=== PATIENT | female | born 1965 | race Hispanic/Latino ===

== ENCOUNTER 2017-04-06 17:26 | Emergency (ER) | payer SELFPAY ==
[2017-04-06] MEDS ORDERED: Ketorolac Tromethamine 60 MG/2 ML VIAL ONE (18:47)
[2017-04-06] MEDS ORDERED: Dexamethasone 10 MG/ML VIAL ONE (18:47)
[2017-04-06] MEDS ORDERED: Acetaminophen 500 MG TAB ONE (18:47)
[2017-04-06 19:09] LABS: Bilirubin Negative (Negative); Blood, Urine Negative (Negative); Glucose, Urine (Dipstick) Negative (Negative); Ketone, Urine Negative (Negative); Nitrite Negative (Negative); Protein, Urine (Dipstick) Negative (Neg-Trace)
== END 2017-04-06 19:48 | disposition home or self-care (01) ==
LOC: ERS 17:26
DX: J02.0 Streptococcal pharyngitis (principal); E11.9 Type 2 diabetes mellitus without complications; E78.5 Hyperlipidemia, unspecified; I10 Essential (primary) hypertension; F32.9 Major depressive disorder, single episode, unspecified; F41.9 Anxiety disorder, unspecified; Z79.84 Long term (current) use of oral hypoglycemic drugs; Z79.82 Long term (current) use of aspirin; Z79.899 Other long term (current) drug therapy
CPT/HCPCS: 81003; 96372; J1100; J1885

== ENCOUNTER 2017-05-19 07:55 | Emergency (ER) | payer OTHER, SELFPAY ==
[2017-05-19] MEDS ORDERED: Ketorolac Tromethamine 30 MG/ML VIAL ONE (11:32)
--- NOTE | 2017-05-19 14:47 | RAD ---
THORACIC SPINE THREE VIEWS: History: Back injury. FINDINGS: Vertebral bodies are normal in height. Degenerative osteophytes are seen. No compression fractures. P edicles appear intact. IMPRESSION: No acute injury. POS: [facility]
--- NOTE | 2017-05-19 15:26 | RAD ---
CERVICAL SPINE SERIES THREE VIEWS: History: Neck injury. FINDINGS: Vertebral bodies are normal in height. There are small osteophytes present, lower cervical spine shanel on. Very minimal retrolisthesis of C5 on C6. There are no signs of fracture or dislocation or soft ti ssue swelling. IMPRESSION: Mild arthritic changes of the spine. POS: [facility]
== END 2017-05-19 13:18 | disposition home or self-care (01) ==
LOC: ERS 07:55
DX: M79.1 Myalgia (principal); M54.6 Pain in thoracic spine; M54.2 Cervicalgia; E11.9 Type 2 diabetes mellitus without complications; E78.5 Hyperlipidemia, unspecified; I10 Essential (primary) hypertension; F32.9 Major depressive disorder, single episode, unspecified; F41.9 Anxiety disorder, unspecified; V43.92XA Unspecified car occupant injured in collision with other type car in traffic accident, initial encounter
CPT/HCPCS: 72040; 72072; 96372; J1885

== ENCOUNTER 2017-06-07 07:03 | Emergency (ER) | payer OTHER, SELFPAY ==
--- NOTE | 2017-06-07 08:39 | RAD ---
PA AND LATERAL VIEWS OF CHEST: Date: 06/07/17 HISTORY: Cough. FINDINGS: The heart size is normal. The lungs are well expanded without focal areas of consolidation, pneumotho rax, or pleural effusions. There are mild degenerative changes in the spine. Comparison is made with the exam of 09/12/15. IMPRESSION: No radiographic evidence of acute cardiopulmonary process. POS: [facility]
== END 2017-06-07 08:58 | disposition home or self-care (01) ==
LOC: ERS 07:03
DX: J06.9 Acute upper respiratory infection, unspecified (principal); E11.9 Type 2 diabetes mellitus without complications; E78.5 Hyperlipidemia, unspecified; I10 Essential (primary) hypertension; F32.9 Major depressive disorder, single episode, unspecified; F41.9 Anxiety disorder, unspecified; Z79.84 Long term (current) use of oral hypoglycemic drugs; Z79.899 Other long term (current) drug therapy
CPT/HCPCS: 71020; 94640; J7620

== ENCOUNTER 2017-09-09 21:34 | Emergency (ER) | payer SELFPAY ==
[2017-09-09] MEDS ORDERED: Nitroglycerin 0.4 MG TAB (25 Tab Bottle) ONE (21:55)
[2017-09-09] MEDS ORDERED: Aspirin 325 MG TAB ONE (21:55)
[2017-09-09 22:05] LABS: #Basophils 0.1 thou/uL (0.0-0.2); #Eosinphils 0.3 thou/uL (0.0-0.7); #Lymphocytes 4.4 thou/uL (1.20-3.40); #Monocytes 0.8 thou/uL (0.11-0.59); #Neutrophils 7.7 thou/uL (1.40-6.50); %Basophils 0.6 % (0.0-1.0); %Eosinophils 2.6 % (0.0-10.0); %Lymphocytes 32.8 % (21.0-51.0); %Monocytes 6.3 % (0.0-10.0); %Neutrophils 57.7 % (42.0-75.0); Hemoglobin 13.5 g/dL (12.0-16.0); Mean Corpuscular HGB CONC 33.9 g/dL (32.0-36.0); Mean Corpuscular Hemoglobin 29.1 pg (27.0-31.0); Mean Platelet Volume 6.9 fL (7.4-10.4); Platelet Count 343 thou/uL (130-400); RBC Distribution Width 11.9 % (11.5-14.5); Red Blood Cell (RBC) Count 4.64 mill/uL (4.20-5.40); White Blood Cell (WBC) Count 13.4 thou/uL (4.8-10.8)
[2017-09-09 22:34] LABS: ALT (SGPT) 23 U/L (8-55); AST (SGOT) 33 U/L (5-34); Albumin 3.7 g/dL (3.5-5.0); Alkaline Phosphatase 114 U/L (40-150); Anion Gap 14 mmol/L (10-20); BUN (Urea Nitrogen) 11 mg/dL (9.8-20.1); Bilirubin, Total 0.4 mg/dL (0.2-1.2); Calc. Creatinine Clearance 0 mL/min (70-130); Calcium 8.6 mg/dL (7.8-10.44); Carbon Dioxide 22 mmol/L (22-29); Chloride 104 mmol/L (98-107); Estimated GFR-MDRD 52; Globulin 4.3 g/dL (2.4-3.5); Glucose 213 mg/dL (70-105); Potassium 4.7 mmol/L (3.5-5.1); Sodium 135 mmol/L (136-145)
[2017-09-09 22:35] LABS: CKMB 1.6 ng/mL (0-6.6); Troponin I Less than 0.010 ng/mL (< 0.028)
--- NOTE | 2017-09-09 22:48 | RAD ---
SINGLE VIEW OF THE CHEST: Comparison: None. History: Chest pain, dizziness. FINDINGS: Single view of the chest shows a normal sized cardiomediastinal silhouette. There is no evidence of c onsolidation, mass, or pleural effusion. The bones are unremarkable. IMPRESSION: No evidence of acute cardiopulmonary disease. POS: [facility]
== END 2017-09-09 23:25 | disposition home or self-care (01) ==
LOC: ERS 21:34
DX: R07.89 Other chest pain (principal); I10 Essential (primary) hypertension; E11.9 Type 2 diabetes mellitus without complications; K21.9 Gastro-esophageal reflux disease without esophagitis; E78.5 Hyperlipidemia, unspecified; E66.9 Obesity, unspecified; Z79.84 Long term (current) use of oral hypoglycemic drugs; Z79.899 Other long term (current) drug therapy
CPT/HCPCS: 71045; 80053; 82553; 84484; 85025; 85379; 93005; 94760

== ENCOUNTER 2018-05-29 06:57 | Day surgery (SDC) | payer OTHER ==
[2018-05-28 14:45] VITALS: BMI 52.9
[2018-05-29] MEDS ORDERED: PROPOFOL 200 MG/20 ML VIAL ONE (10:07)
--- NOTE | 2018-05-29 15:20 | OP ---
DATE OF PROCEDURE: 05/29/2018 PROCEDURE PERFORMED: Colonoscopy (diagnostic). INDICATION FOR PROCEDURE: Recurrent diverticulitis, screening for malignant neoplasm of the colon. DESCRIPTION OF PROCEDURE: After the risks and benefits of the procedure were explained to the patient including risks of bleeding, infection, perforation, reactions to anesthesia, aspiration, and/or pain, informed consent was obtained. The patient was then taken to the endoscopy suite, where deep sedation was administered via propofol and anesthesia support. Once adequate sedation was achieved, the patient was placed in the left lateral decubitus position with a digital rectal examination performed. Once that was completed, the standard colonoscope was introduced into the rectum and advanced to the terminal ileum without difficulty and with careful visualization of the mucosa on withdrawal. The quality of the prep was excellent. The patient tolerated the procedure well with no immediate perioperative complications. At the completion of the procedure, all equipment was removed from the patient and she was taken to Day Stay in satisfactory condition. COLONOSCOPY FINDINGS: Digital rectal exam normal. COLON FINDINGS: Normal-appearing mucosa was seen in the terminal ileum as well as in the ileocecal valve and appendiceal orifice. Normal-appearing mucosa was then seen in the cecum, ascending, and transverse and proximal descending colon. Numerous small and large mouth diverticula were seen in the distal descending colon as well as within the sigmoid colon without any evidence of colonic narrowing, increased erythema, bleeding, or purulence. Normal-appearing mucosa was then seen in the rectum. Normal-appearing mucosa was also seen on rectal retroflexion. IMPRESSION: 1. Severe left-sided diverticulosis without any evidence of diverticulitis. 2. Otherwise, normal colonoscopy. RECOMMENDATIONS: 1. Would follow up in the GI clinic in 3 weeks for further evaluation/management of chronic constipation and diverticulitis. 2. Would place consult for evaluation by the colorectal surgeon at that time for possible sigmoid resection due to recurrent diverticulitis. 3. Would repeat the colonoscopy in 10 years as part of screening for colonic neoplasm. Job ID: [id number]
== END 2018-05-29 10:28 | disposition home or self-care (01) ==
LOC: SDC 06:57
PROVIDERS: ATTEND Internal Medicine
PROC: 0DJD8ZZ Inspection of Lower Intestinal Tract, Via Natural or Artificial Opening Endoscopic (ICD-10-PCS; principal; 2018-05-29)
DX: Z12.11 Encounter for screening for malignant neoplasm of colon (principal); K57.30 Diverticulosis of large intestine without perforation or abscess without bleeding; K59.09 Other constipation; K21.9 Gastro-esophageal reflux disease without esophagitis; Z79.82 Long term (current) use of aspirin; Z79.84 Long term (current) use of oral hypoglycemic drugs; Z79.899 Other long term (current) drug therapy
CPT/HCPCS: J2704

== ENCOUNTER 2018-06-07 19:42 | Observation (INO) | payer SELFPAY ==
[2018-06-07] MEDS ORDERED: Nitroglycerin 2% Ointment 1 INCH/1 GM Packet ONE (20:07)
[2018-06-07 20:12] LABS: #Basophils 0.1 thou/uL (0.0-0.2); #Eosinphils 0.6 thou/uL (0.0-0.7); #Monocytes 1.1 thou/uL (0.11-0.59); %Basophils 0.7 % (0.0-1.0); %Eosinophils 3.6 % (0.0-10.0); %Lymphocytes 31.5 % (21.0-51.0); %Monocytes 6.8 % (0.0-10.0); %Neutrophils 57.3 % (42.0-75.0); Hemoglobin 13.1 g/dL (12.0-16.0); Mean Corpuscular HGB CONC 34.2 g/dL (32.0-36.0); Mean Corpuscular Hemoglobin 29.3 pg (27.0-31.0); Mean Corpuscular Volume 85.6 fL (78.0-98.0); Mean Platelet Volume 7.2 fL (7.4-10.4); Platelet Count 209 thou/uL (130-400); RBC Distribution Width 12.4 % (11.5-14.5); Red Blood Cell (RBC) Count 4.48 mill/uL (4.20-5.40); White Blood Cell (WBC) Count 15.8 thou/uL (4.8-10.8)
[2018-06-07 20:31] LABS: ALT (SGPT) 18 U/L (8-55); AST (SGOT) 23 U/L (5-34); Albumin 3.9 g/dL (3.5-5.0); Alkaline Phosphatase 118 U/L (40-150); Anion Gap 13 mmol/L (10-20); BUN (Urea Nitrogen) 8 mg/dL (9.8-20.1); Bilirubin, Total 0.4 mg/dL (0.2-1.2); CK (CPK) 115 U/L (29-168); Calc. Creatinine Clearance 0 mL/min (70-130); Calcium 9.1 mg/dL (7.8-10.44); Carbon Dioxide 24 mmol/L (22-29); Chloride 105 mmol/L (98-107); Estimated GFR-MDRD 63; Globulin 3.9 g/dL (2.4-3.5); Glucose 181 mg/dL (70-105); Potassium 3.6 mmol/L (3.5-5.1); Protein, Total 7.8 g/dL (6.0-8.3); Sodium 138 mmol/L (136-145)
--- NOTE | 2018-06-07 20:51 | RAD ---
PORTABLE CHEST: 06/07/18 HISTORY: Chest pain . COMPARISON: 09/09/17 study. Heart size and mediastinum are within normal limits. The lungs are clear of any infiltrative process. No signs of failure. IMPRESSION: No active intrathoracic disease. POS: [facility]
[2018-06-07] MEDS ORDERED: Acetaminophen 500 MG TAB ONE (21:08)
[2018-06-07] MEDS ORDERED: Dextrose 5% in Water 1,000 ML IV PRN (23:28)
[2018-06-07] MEDS ORDERED: HumaLOG 300 UNITS/3 ML VIAL SC PRN (23:28)
[2018-06-07] MEDS ORDERED: Dextrose 50% Abboject 50 ML SYRINGE SLOW IVP PRN (23:28)
[2018-06-07] MEDS ORDERED: Sodium Chloride 0.9% 1,000 ML IV SCH (23:30)
[2018-06-08 00:05] VITALS: BMI 52.4
[2018-06-08 00:47] LABS: Troponin I Less than 0.010 ng/mL (< 0.028)
[2018-06-08] MEDS ORDERED: traMADol HCl 50 MG TAB PO PRN (01:25)
[2018-06-08] MEDS ORDERED: Acetaminophen 325 MG TAB PO PRN (01:25)
--- NOTE | 2018-06-08 04:51 | HP ---
CHIEF COMPLAINT: Chest pain. HISTORY OF PRESENT ILLNESS: The patient is a very pleasant 53-year-old female with a history of hypertension and diabetes, who presented to the hospital for chest pain. The patient stated that she has been having on and off chest tightness going on for few months. However, today when she was at [employer] walking with her family, she started having some chest tightness, felt very diaphoretic, and also felt a little dizzy, so she checked her blood pressure and blood pressure is very high, so she came in to the hospital for further evaluation. The patient denies any fevers or chills recently. Denies any sick contacts. Denies any nausea, vomiting, or diarrhea. The patient does state that she does get a little short of breath that she has noticed on some minimal exertion. PAST MEDICAL HISTORY: The patient has a past medical history of; 1. Hypertension. 2. Diabetes. 3. Obesity. 4. Diverticulosis. 5. Anxiety and depression. PAST SURGICAL HISTORY: She has had bilateral elbow surgery, hysterectomy, bilateral tubal ligation. ALLERGIES: SHE HAS NO KNOWN DRUG ALLERGIES. SOCIAL HISTORY: She denies any history of any alcohol use, drug use, or smoking history. She lives with her . She is a full code. FAMILY HISTORY: Significant for multiple family members with heart problems, diabetes, and hypertension. Her mother of complications of open heart surgery at the age of 73 and father had heart attack at the age of 75. CURRENT MEDICATIONS: This is through the chart. The patient is on the following; 1. Hydrochlorothiazide 25 mg b.i.d. 2. Nexium 20 mg b.i.d. 3. Metoprolol 50 mg b.i.d. 4. Aspirin 81 mg daily. 5. Citalopram 40 mg b.i.d. 6. Lovastatin 10 mg q.p.m. REVIEW OF SYSTEMS: All negative except for the ones mentioned above in the HPI. PHYSICAL EXAMINATION: VITAL SIGNS: As of the following; temperature of 97.7, heart rate 81, respirations 16, oxygen saturation 97% on room air, blood pressure 163/85. GENERAL: She is awake, alert, and oriented x3. Does not appear in distress. CV: S1 and S2 present. No murmurs, rubs, or gallops. HEENT: Normocephalic, atraumatic. No lymphadenopathy noted. RESPIRATORY: Lungs are clear to auscultation. No rhonchi or wheezes noted. ABDOMEN: Soft and nontender. Bowel sounds are present x2. No hepatomegaly or splenomegaly noted. NEUROLOGIC: No pedal edema or calf tenderness. NEUROLOGIC: The patient is able to move all 4 extremities. Sensation is intact in bilateral upper extremities and bilateral lower extremities. SKIN: No cuts, bruises, or lesions noted. PSYCHIATRIC: Alert and oriented x3. LABORATORY RESULTS: Are as of the following; WBCs of 15.8, hemoglobin of 13.1, hematocrit of 38.4, platelets of 209. Chemistry; sodium of 138, potassium 3.6, BUN of 8, creatinine of 0.93. Troponin x2 were negative. EKG was normal. Urine has not been ordered. Her urine is still pending. The patient did have a chest x-ray done, which indicated no active intrathoracic disease. ASSESSMENT AND PLAN: The patient is a very pleasant 53-year-old female who presents to the hospital with complaints of chest pain. 1. Chest pain. The patient has had a stress test, I believe, in 2016, which was negative. We will order stress test given the fact that she has hypertension and diabetes. Her troponin x3 are negative. Also, her EKG did not show any acute symptoms. Given her risk factors, we will get a stress test in the morning. We will also continue to trend her troponins. 2. Diabetes. We will continue her home medications. 3. Hypertension. We will continue her home medications. 4. Deep vein thrombosis prophylaxis. We will put the patient on some sequential compression devices. 5. Elevated leukocytosis, I have noticed a pattern. She has been having elevated leukocytosis since 2016. Her differential in that indicates that she has some monocytes and some lymphocytes. We will check a urine just to make sure that she does not have a urinary tract infection. However, chest x-ray appears to be normal. Job ID: [id number]
[2018-06-08 05:35] LABS: Bilirubin Negative (Negative); Blood, Urine Negative (Negative); Clarity CLEAR (Clear); Glucose, Urine (Dipstick) Negative (Negative); Leukocyte Negative (Negative); Nitrite Negative (Negative); Protein, Urine (Dipstick) Negative (Neg-Trace); Specific Gravity, Urine 1.017 (1.002-1.036); Urobilinogen 0.2 mg/dL (0.2-1.0); pH, Urine 5.5 (5.0-9.0)
[2018-06-08 05:37] LABS: Bacteria/HPF None Seen HPF (None Seen); Hyaline Casts/LPF 0-3 HYALINE CAST LPF (0-3 Hyaline); Pathc Cast-AUWi Flag 0.14 (0-2.49); Squamous Epithelial 0-3 HPF (0-3); WBC/HPF 0-3 HPF (0-3)
[2018-06-08 06:12] LABS: Hemoglobin A1c 6.8 % (4.0-6.0)
[2018-06-08 06:27] LABS: Cardiac Risk 4.7 (Less than 4.5)
[2018-06-08 06:29] LABS: Troponin I Less than 0.010 ng/mL (< 0.028)
[2018-06-08] MEDS ORDERED: Lovastatin 20 MG TAB PO SCH (08:00)
[2018-06-08] MEDS ORDERED: Pantoprazole 40 MG GRANULES PACKET PO SCH (09:00)
[2018-06-08] MEDS ORDERED: Citalopram 20 MG TAB PO SCH (09:00)
[2018-06-08 12:11] VITALS: TEMP 98
[2018-06-08] MEDS ORDERED: Lisinopril 10 MG TAB PO SCH ×2 (13:45→21:00)
--- NOTE | 2018-06-08 14:32 | NM ---
CARDIAC SPECT: CLINICAL HISTORY: 53-year-old female with chest pain, hypertension, and diabetes. TECHNIQUE: A stress-only myocardial perfusion scan was performed following the intravenous administration of 33 mCi technetium-99m sestamibi. Pharmacologic stress with Adenosine was monitored and interpreted by Dr Nichole Kulkarni. FINDINGS: Homogeneous tracer distribution is seen in the myocardial segments on the post stress images. GATED SPECT LVEF: 68%. WALL MOTION EXAM: Normal. IMPRESSION: Normal post stress myocardial perfusion scan. POS: [facility]
[2018-06-08 14:53] VITALS: BP 143/67
[2018-06-08] MEDS ORDERED: Aspirin 81 mg Enteric Coated Tablet PO SCH (21:00)
--- NOTE | 2018-06-08 21:50 | DIS ---
DATE OF ADMISSION: 06/07/2018 DATE OF DISCHARGE: 06/08/2018 PRIMARY CARE PROVIDER: Mansi Centeno at [facility]. CONSULTANTS: None. PROCEDURES: The patient had a chest x-ray, which showed no active intrathoracic disease. The patient had a stress test, which showed an EF of 68%, normal wall motion and an impression of normal post stress myocardial perfusion scan. HOSPITAL COURSE: Ms. Draper is a very pleasant 53-year-old female, who presented to the emergency room on day of admission with a chief complaint of chest pain. Reports that she had gone to [employer] and felt dizzy, hot, and diaphoretic. Blood pressure was 170/80. She does report a past medical history including hypertension, diverticulitis, hyperlipidemia, high cholesterol, and diabetes type 2. The patient had 3 troponins, which were undetectable. EKG showed normal sinus rhythm, beats per minute were 92, and no ectopics. Lab work unremarkable other than for some leukocytosis, white blood cell count of 15.8. She has had elevated white blood cell count in the past 2 years. Urinalysis was negative. Chest x-ray negative. The patient reports that she feels better today. After stress test was also negative, the patient is desiring to go home. She has been instructed to follow up with her primary care physician within 1 week and follow up with Dr. Kulkarni as needed within next 2 weeks. DISCHARGE DIAGNOSES: 1. Chest pain, etiology unknown. 2. Hypertension. 3. Hyperlipidemia. 4. Diabetes type 2. 5. Diverticulosis/diverticulitis. REVIEW OF SYSTEMS: The patient was examined after her stress test. She denies any complaints. Denies any headache, shortness of breath, chest pain, palpitations, abdominal pain, nausea, vomiting, diarrhea, or dysuria. All other systems were reviewed and are negative unless mentioned in the hospital course. PHYSICAL EXAMINATION: VITAL SIGNS: Temperature 97.7, pulse is 82, respirations are 18, blood pressure 167/78, and pulse ox is 98% on room air. CONSTITUTIONAL: The patient is nontoxic appearing. Appears pain free. She is alert and oriented to person, place, and time. HEENT: Head is atraumatic and normocephalic. Eyes, eyelids are normal to inspection. Pupils are equally round and reactive to light. Extraocular muscles are intact. ENT, mouth exam is normal. Mucous membranes are moist. NECK: Normal range of motion. Trachea is midline. No tenderness. CHEST/RESPIRATORY: Breath sounds are clear. No signs of respiratory distress. CARDIOVASCULAR: Heart sounds are normal. S1 and S2. Normal rate and rhythm. ABDOMEN: Nontender. Bowel sounds are heard. BACK: Normal inspection. Normal range of motion. EXTREMITIES: Upper extremity, normal inspection. Normal range of motion. Strength is normal. Sensation is intact. Radial pulses equal bilaterally. Lower extremity, normal inspection. Normal range of motion. Normal strength. Sensation is intact. Pedal pulses are equal bilaterally. No edema is noted. NEURO: Cranial nerves 2 through 12 are intact. No focal motor or sensory deficits. The patient is alert and oriented to person, place, and time. SKIN: Warm, dry, and normal in color. PSYCH: She has a normal affect. MEDICATIONS: The patient will resume her medications, which include; 1. Aspirin 81 mg p.o. q.p.m. 2. Citalopram 40 mg p.o. b.i.d. 3. Nexium 20 mg p.o. b.i.d. 4. Hydrochlorothiazide 25 mg b.i.d. 5. Lovastatin 10 mg p.o. q.a.m. 6. Glucophage 500 mg q.a.m. 7. Lopressor 50 mg b.i.d. 8. In light of her blood pressure being elevated while she was hospitalized, we added lisinopril 10 mg p.o. at bedtime. DISCHARGE CONDITION: Stable. DISPOSITION: The patient will be discharged home. FOLLOWUP: The patient should follow up with her primary care physician within the next [address] Kulkarni within the next 2 to 3 weeks is recommended if the patient continues to have similar chest pain. Job ID: [id number]
== END 2018-06-08 15:23 | disposition home or self-care (01) ==
LOC: ERS 19:42 → 2SW 21:53
PROVIDERS: ADMIT Internal Medicine; ATTEND Internal Medicine
DX: R07.89 Other chest pain (principal); I10 Essential (primary) hypertension; E11.9 Type 2 diabetes mellitus without complications; F41.8 Other specified anxiety disorders; D72.829 Elevated white blood cell count, unspecified; E78.00 Pure hypercholesterolemia, unspecified; K57.90 Diverticulosis of intestine, part unspecified, without perforation or abscess without bleeding; E66.9 Obesity, unspecified; Z68.43 Body mass index [BMI] 50.0-59.9, adult; Z79.82 Long term (current) use of aspirin; Z79.84 Long term (current) use of oral hypoglycemic drugs; Z79.899 Other long term (current) drug therapy
CPT/HCPCS: 36415; 36416; 71045; 78452; 80053; 80061; 81001; 82550; 83036; 84484; 85025; 85379; 90471; 90732; 93005; 93017; 94760; 96360; 96361; A9500; G0009; G0378

== ENCOUNTER 2018-06-23 19:19 | Emergency (ER) | payer MEDICAID ==
[2018-06-23 19:55] LABS: #Basophils 0.1 thou/uL (0.0-0.2); #Eosinphils 0.4 thou/uL (0.0-0.7); #Lymphocytes 3.7 thou/uL (1.20-3.40); #Monocytes 0.9 thou/uL (0.11-0.59); #Neutrophils 6.4 thou/uL (1.40-6.50); %Basophils 0.6 % (0.0-1.0); %Eosinophils 3.7 % (0.0-10.0); %Lymphocytes 32.3 % (21.0-51.0); %Neutrophils 55.4 % (42.0-75.0); Hemoglobin 13.3 g/dL (12.0-16.0); Mean Corpuscular HGB CONC 34.5 g/dL (32.0-36.0); Mean Corpuscular Hemoglobin 29.7 pg (27.0-31.0); Mean Platelet Volume 6.4 fL (7.4-10.4); Platelet Count 406 thou/uL (130-400); RBC Distribution Width 12.3 % (11.5-14.5); Red Blood Cell (RBC) Count 4.48 mill/uL (4.20-5.40); White Blood Cell (WBC) Count 11.5 thou/uL (4.8-10.8)
[2018-06-23 20:11] LABS: ALT (SGPT) 22 U/L (8-55); AST (SGOT) 26 U/L (5-34); Albumin 3.9 g/dL (3.5-5.0); Alkaline Phosphatase 125 U/L (40-150); Anion Gap 14 mmol/L (10-20); BUN (Urea Nitrogen) 15 mg/dL (9.8-20.1); Bilirubin, Total 0.6 mg/dL (0.2-1.2); Calc. Creatinine Clearance 0 mL/min (70-130); Calcium 9.2 mg/dL (7.8-10.44); Carbon Dioxide 24 mmol/L (22-29); Chloride 102 mmol/L (98-107); Estimated GFR-MDRD 63; Glucose 160 mg/dL (70-105); Lipase 9 U/L (8-78); Potassium 3.5 mmol/L (3.5-5.1); Protein, Total 7.9 g/dL (6.0-8.3); Sodium 136 mmol/L (136-145)
[2018-06-23 20:31] LABS: Bilirubin Negative (Negative); Blood, Urine Negative (Negative); Clarity CLEAR (Clear); Glucose, Urine (Dipstick) Negative (Negative); Leukocyte Negative (Negative); Nitrite Negative (Negative); Protein, Urine (Dipstick) Negative (Neg-Trace)
== END 2018-06-23 20:50 | disposition home or self-care (01) ==
LOC: ERS 19:19
DX: K57.92 Diverticulitis of intestine, part unspecified, without perforation or abscess without bleeding (principal); E78.5 Hyperlipidemia, unspecified; E11.9 Type 2 diabetes mellitus without complications; I10 Essential (primary) hypertension; F32.9 Major depressive disorder, single episode, unspecified; F41.9 Anxiety disorder, unspecified
CPT/HCPCS: 36415; 80053; 81003; 83690; 85025; 99284

== ENCOUNTER 2018-07-16 09:26 | Outpatient (CLI) | payer MEDICAID ==
--- NOTE | 2018-07-16 11:27 | CT ---
CT ABDOMEN AND PELVIS WITH IV CONTRAST: Date: 07/16/18 INDICATION: History of diverticulitis with left lower quadrant abdominal pain. CONTRAST: 70 mL [id number]. COMPARISON: Prior exam dated 01/20/18. FINDINGS: The lung bases are clear. There is mild fatty infiltration of the liver. There is mild fatty infiltration of the pancreas. The adrenal glands, kidneys, and spleen appear within normal limits. There are scattered diverticula involving the colon without evidence of active diverticulitis. There is no drainable fluid collection demonstrated. There is a normal appendix in the right lower quadrant . The bladder is partially decompressed. No pathologically enlarged lymph nodes are grossly evident. There are mid vascular calcifications involving the abdominopelvic vasculature. No acute osseous abnormality is evident. IMPRESSION: 1. No acute abnormality. 2. Colonic diverticulosis. 3. Fatty liver. 4. Mild atherosclerotic calcification of the abdominal aorta. POS: [facility]
[2018-07-16] MEDS ORDERED: ISOVUE-370 76%-LOCM 1 ML ONE (13:30)
== END 2018-07-16 09:27 | disposition home or self-care (01) ==
LOC: BICCT 09:26
PROVIDERS: ATTEND Surgery
DX: R10.9 Unspecified abdominal pain (principal); K57.30 Diverticulosis of large intestine without perforation or abscess without bleeding; K76.0 Fatty (change of) liver, not elsewhere classified; I70.0 Atherosclerosis of aorta
CPT/HCPCS: 74177; Q9966

== ENCOUNTER 2018-08-21 13:07 | Outpatient (CLI) | payer OTHER | END 2018-08-21 13:08 | disposition home or self-care (01) | LOC: DTY/OP 13:07 | PROVIDERS: ATTEND Specialist | DX: Z01.818 Encounter for other preprocedural examination (principal); E66.01 Morbid (severe) obesity due to excess calories | CPT/HCPCS: 97802 ==

== ENCOUNTER 2018-09-04 08:58 | Outpatient (CLI) | payer OTHER ==
--- NOTE | 2018-09-08 13:25 | MMO ---
Bilateral MAMMO Bilat Screen DDI. CLINICAL HISTORY: Patient is 53 years old and is seen for screening. The patient has no family history of breast cancer. The patient has no personal history of cancer. VIEWS: The views performed were: bilateral craniocaudal and bilateral mediolateral oblique. FILMS COMPARED: The present examination has been compared to prior imaging studies performed at [facility] on 04/16/2013, 05/25/2015 and 08/01/2017. This study has been interpreted with the assistance of computer-aided detection. MAMMOGRAM FINDINGS: There are scattered fibroglandular densities. Finding 1: There are benign scattered densities in both breasts. Finding 2: There is a stable focal asymmetry seen in the right breast. There are no suspicious masses, suspicious calcifications, or new areas of architectural distortion. IMPRESSION: THERE IS NO MAMMOGRAPHIC EVIDENCE OF MALIGNANCY. A ROUTINE FOLLOW-UP MAMMOGRAM IN 1 YEAR IS RECOMMENDED. ACR BI-RADS Category 2 - Benign finding MAMMOGRAPHY NOTE: 1. A negative mammogram report should not delay a biopsy if a dominant of clinically suspicious mass is present. 2. Approximately 10% to 15% of breast cancers are not detected by mammography. 3. Adenosis and dense breasts may obscure an underlying neoplasm.
== END 2018-09-04 08:59 | disposition home or self-care (01) ==
LOC: SCSMAMMO 08:58
PROVIDERS: ATTEND Nurse Practitioner Family
DX: Z12.31 Encounter for screening mammogram for malignant neoplasm of breast (principal)
CPT/HCPCS: 77067

== ENCOUNTER 2018-09-22 07:02 | Observation (INO) | payer OTHER ==
[2018-09-22] MEDS ORDERED: Nitroglycerin 2% Ointment 1 INCH/1 GM Packet ONE (08:06)
[2018-09-22] MEDS ORDERED: Aspirin Chewable 81 MG TAB ONE (08:06)
[2018-09-22 08:25] LABS: #Eosinphils 0.3 thou/uL (0.0-0.7); #Lymphocytes 3.2 thou/uL (1.20-3.40); #Monocytes 0.7 thou/uL (0.11-0.59); #Neutrophils 5.5 thou/uL (1.40-6.50); %Basophils 0.3 % (0.0-1.0); %Eosinophils 3.2 % (0.0-10.0); %Lymphocytes 33.3 % (21.0-51.0); %Monocytes 6.9 % (0.0-10.0); %Neutrophils 56.3 % (42.0-75.0); Hemoglobin 13.1 g/dL (12.0-16.0); Mean Corpuscular Hemoglobin 28.7 pg (27.0-31.0); Mean Corpuscular Volume 86.8 fL (78.0-98.0); Mean Platelet Volume 7.2 fL (7.4-10.4); Platelet Count 324 thou/uL (130-400); RBC Distribution Width 11.6 % (11.5-14.5); Red Blood Cell (RBC) Count 4.57 mill/uL (4.20-5.40); White Blood Cell (WBC) Count 9.7 thou/uL (4.8-10.8)
[2018-09-22 09:01] LABS: ALT (SGPT) 25 U/L (8-55); AST (SGOT) 28 U/L (5-34); Albumin 3.9 g/dL (3.5-5.0); Alkaline Phosphatase 131 U/L (40-150); Anion Gap 13 mmol/L (10-20); BUN (Urea Nitrogen) 11 mg/dL (9.8-20.1); Bilirubin, Total 0.4 mg/dL (0.2-1.2); CK (CPK) 140 U/L (29-168); Calc. Creatinine Clearance 0 mL/min (70-130); Calcium 9.1 mg/dL (7.8-10.44); Carbon Dioxide 23 mmol/L (22-29); Chloride 106 mmol/L (98-107); Estimated GFR-MDRD 73; Globulin 3.4 g/dL (2.4-3.5); Glucose 148 mg/dL (70-105); Lipase 8 U/L (8-78); Potassium 4.1 mmol/L (3.5-5.1); Protein, Total 7.3 g/dL (6.0-8.3); Sodium 138 mmol/L (136-145)
--- NOTE | 2018-09-22 09:01 | RAD ---
PORTABLE CHEST: HISTORY: Chest pain. COMPARISON: 06/07/2018 exam. FINDINGS: Heart size and mediastinum are within normal limits. The lungs appear clear of any infiltrative proc ess. No significant bony findings. IMPRESSION: No active intrathoracic disease. POS: [facility]
[2018-09-22] MEDS ORDERED: Acetaminophen 500 MG TAB ONE (09:11)
[2018-09-22] MEDS ORDERED: hydrALAZINE 20 MG/ML VIAL SLOW IVP PRN (10:39)
[2018-09-22] MEDS ORDERED: Ondansetron PF 4 MG/2 ML Vial IVP PRN (10:39)
[2018-09-22 11:54] LABS: Troponin I Less than 0.010 ng/mL (< 0.028)
[2018-09-22 14:21] LABS: Troponin I Less than 0.010 ng/mL (< 0.028)
[2018-09-22] MEDS: HYDROcodone/Acetaminophen 5/325 mg Tablet PO PRN ×2 (15:47→21:13)
[2018-09-22 17:04] VITALS: BMI 57.4
[2018-09-22] MEDS: Metoprolol Tartrate 50 MG TAB PO SCH (21:08)
[2018-09-22] MEDS: metFORMIN 500 MG TAB PO SCH (21:08)
[2018-09-22] MEDS: Aspirin 81 mg Enteric Coated Tablet PO SCH (21:08)
[2018-09-22] MEDS: metroNIDAZOLE 500 MG TAB PO SCH (21:08)
[2018-09-22] MEDS: Lisinopril 10 MG TAB PO SCH (21:08)
--- NOTE | 2018-09-22 22:42 | HP ---
CHIEF COMPLAINT: Chest pain. HISTORY OF PRESENT ILLNESS: The patient is a pleasant 53-year-old female with past medical history significant for obesity, type 2 diabetes mellitus, hypertension, hyperlipidemia, and family history of coronary artery disease, who presented to the hospital today with complaints of chest pressure radiating to the left arm. The patient states that her symptoms have been waxing and waning over the past 2 days, however, this morning became worse and so she presented to the ER for further workup and treatment. As mentioned, she describes the discomfort as a pressure. She states that it has come on both with rest and with exertion. Associated symptoms include shortness of breath along with some diaphoresis. Workup in the ER has included an EKG, which shows sinus rhythm and no ischemic ST or T-wave changes. Her serial cardiac enzymes have been negative thus far. The nitroglycerin did not seem to alleviate her discomfort. Her D-dimer was negative. The patient has had a recent Cardiolite stress test, which was performed June 07, 2018, which showed no evidence of reversible ischemia, normal poststress myocardial perfusion scan, and normal EF, which was estimated at 68%. The patient has followed with Dr. Kulkarni since that time. PAST MEDICAL HISTORY: 1. Hypertension. 2. Type 2 diabetes. 3. Obesity. 4. Diverticulosis. 5. Anxiety and depression. PAST SURGICAL HISTORY: 1. Bilateral elbow procedures. 2. Hysterectomy. 3. Bilateral tubal ligation. ALLERGIES: NO KNOWN DRUG ALLERGIES. SOCIAL HISTORY: She denies any history of alcohol, drug use, or smoking history. She lives with her . She is a full code. This was discussed with the patient. FAMILY HISTORY: The patient has significant history of coronary artery disease in both her mother and her father. Her mother postoperatively after complications occurred with bypass surgery. Her father had bypass surgery many years ago and recently had a heart attack at the age of 75. HOME MEDICATIONS: 1. Aspirin 81 mg daily. 2. Atorvastatin 40 mg p.o. daily. 3. Calcium carbonate/vitamin D3 one tablet p.o. daily. 4. Bentyl 10 mg capsule one capsule p.o. t.i.d. p.r.n. 5. Esomeprazole 20 mg capsule one tablet p.o. daily. 6. Levofloxacin 750 mg tablet one tablet p.o. daily. 7. Metformin 500 mg tablet one tablet p.o. b.i.d. 8. Metoprolol tartrate 100 mg p.o. a.m. and 50 mg p.o. q.p.m. 9. Metronidazole 500 mg p.o. t.i.d. 10. Lisinopril 10 mg tablet one tablet p.o. nightly. REVIEW OF SYSTEMS: A 12-point review of systems performed and is negative except as stated above. The patient has had no recent cough, colds, or fevers. She denies any recent injuries. PHYSICAL EXAMINATION: VITAL SIGNS: Blood pressure 103/59, pulse 65 and O2 saturations 98% on room air. GENERAL: The patient is an obese female, resting comfortably in bed. She is in no respiratory distress. HEENT: Head, atraumatic and normocephalic. Mucous membranes are moist. Extraocular eye movements are intact. NECK: No appreciable JVD. No carotid bruits. No lymphadenopathy. CV: S1 and S2. Regular rate and rhythm. No appreciable murmurs, rubs, or gallops. LUNGS: Regular respiratory rate and pattern. Clear to auscultation bilaterally. ABDOMEN: Positive bowel sounds. Nontender, obese. SKIN: Warm and dry. No rashes or discoloration. EXTREMITIES: No edema. NEUROLOGIC: Cranial nerves 2 through 12 are intact. No focal deficits. PSYCHIATRIC: She has appropriate affect. Alert and oriented x3. LABORATORY DATA: White blood cell count 9.7, hemoglobin 13.1, hematocrit 39.6, MCV 86.8, MCH 28.7, and platelet count is 324. D-dimer 0.27. Sodium 138, potassium 4.1, chloride 106, carbon dioxide 23, anion gap 13, BUN 11, creatinine 0.81, and glucose 148. AST, ALT, and alkaline phosphatase all within normal limits. Troponin is negative x2. Lipase is 8. ASSESSMENT: 1. Chest pain with atypical and typical features in a patient with multiple risk factors including diabetes, hypertension, hyperlipidemia, and family history of coronary artery disease. 2. Type 2 diabetes mellitus. 3. Hypertension. 4. Hyperlipidemia. 5. Obesity. 6. Diverticulosis. PLAN: We will continue serial cardiac enzymes to rule out ACS. The patient has had a recent nuclear stress test, which was normal, and so, we will not repeat that. Given her repeat admission for chest pain in a period of a few months, we will go ahead and consult Cardiology for possibility of a left heart catheterization if they deemed necessary. We will go ahead and continue her home medications including PPI. Continue p.r.n. nitrates along with her home medication regimen. DVT prophylaxis with SCDs. Further recommendations based on hospital course. Job ID: [id number]
[2018-09-23 05:24] LABS: Anion Gap 12 mmol/L (10-20); BUN (Urea Nitrogen) 15 mg/dL (9.8-20.1); Calc. Creatinine Clearance 169 mL/min (70-130); Carbon Dioxide 24 mmol/L (22-29); Cardiac Risk 4.9 (Less than 4.5); Chloride 107 mmol/L (98-107); Cholesterol 163 mg/dl (< 200 Desired); Estimated GFR-MDRD 72; Glucose 131 mg/dL (70-105); HDL Cholesterol 33 mg/dL (>60 Neg Risk); LDL Cholesterol, Calculated 98 mg/dL; Potassium 4.3 mmol/L (3.5-5.1); Sodium 139 mmol/L (136-145); Triglycerides 162 mg/dL (Less than 150)
[2018-09-23] MEDS: metFORMIN 500 MG TAB PO SCH (08:55)
[2018-09-23] MEDS: Metoprolol Tartrate 50 MG TAB PO SCH ×2 (08:55→20:15)
[2018-09-23] MEDS: Calcium Carbonate + Vit D 1 TAB PO SCH (08:55)
[2018-09-23] MEDS: metroNIDAZOLE 500 MG TAB PO SCH ×3 (08:56→20:15)
[2018-09-23] MEDS: HYDROcodone/Acetaminophen 5/325 mg Tablet PO PRN (08:57)
[2018-09-23] MEDS ORDERED: Atorvastatin Calcium 40 MG TAB PO SCH (09:00)
[2018-09-23] MEDS ORDERED: Non-Formulary Item 1 EACH (Esomeprazole Magnesium [Nexium 24hr] 20 MG) PO SCH (09:00)
--- NOTE | 2018-09-23 13:26 | CON ---
DATE OF CONSULTATION: HISTORY OF PRESENT ILLNESS: The patient is a 53-year-old woman, who presents with left-sided chest discomfort. The patient has a previous history of chest pain. She was seen in the May 2013 with chest pain. She underwent a Cardiolite stress test, which revealed her to have normal left ventricular systolic function with an estimated ejection fraction of 68% with no evidence of ischemia. The patient was felt to have atypical chest pain. She was seen again in June of this year with left-sided chest discomfort. The chest pain was felt to be pleuritic and she was treated with Aleve. The patient continues to report left-sided chest discomfort that radiates down her left arm. This discomfort can last from a few seconds to several minutes. The patient states that when she takes nonsteroidal medication, the pain is improved. The pain becomes less severe. The patient presented to the emergency room with the recurrent left-sided chest pain. The chest pain radiated down the left arm. She stated it lasted several minutes. She denies having any present chest discomfort. PAST MEDICAL HISTORY: 1. Hypertension. 2. Diabetes mellitus. 3. Diverticulosis. 4. Obesity. 5. Depression. PAST SURGICAL HISTORY: She had hysterectomy, tubal ligation, and elbow surgery. SOCIAL HISTORY: Nonsmoker. FAMILY HISTORY: Strong family history of coronary artery disease. MEDICATIONS: On admission include; 1. Lisinopril 10 at bedtime. 2. Lopressor 100 mg q.a.m. and 50 at bedtime. 3. Metformin 500 b.i.d. 4. Aspirin 81 daily. 5. Nexium 20 daily. ALLERGIES: NO KNOWN DRUG ALLERGIES. REVIEW OF SYSTEMS: Ten-point system, otherwise unremarkable. PHYSICAL EXAMINATION: GENERAL: Obese woman, in no acute distress. VITAL SIGNS: Blood pressure was 128/83. NECK: No jugular venous distention. LUNGS: Clear to auscultation. HEART: Regular rate and rhythm. Normal S1 and S2. ABDOMEN: Distended. EXTREMITIES: Showed trace edema. VASCULAR: Radial pulses 2+. LABORATORY DATA: Sodium 139, potassium 4.3, chloride 107, bicarbonate 24, BUN 15, creatinine is 0.82, and glucose 131. Troponin less than 0.01. IMAGING DATA: EKG revealed her to have normal sinus rhythm with a low-voltage QRS. IMPRESSION: 1. Chest pain, possibly due to ischemic heart disease. 2. Hypertension. 3. Diabetes mellitus. 4. Dyslipidemia. 5. Obesity. 6. History of depression. PLAN: This patient presents with chest discomfort that has some features suggestive of ischemic heart disease. She underwent a recent Cardiolite stress test, which revealed no evidence of ischemia. We will continue to observe this patient. Further recommendations will follow. Job ID: [id number]
--- NOTE | 2018-09-23 14:07 | PRG ---
DATE OF SERVICE: 09/23/2018 SUBJECTIVE: Ms. Draper is a 53-year-old female with past medical history significant for obesity, type-2 diabetes mellitus, hypertension, hyperlipidemia, and family history of coronary artery disease, who presented to the hospital yesterday with complaints of chest pressure radiating to the left arm. ACS has been ruled out in this patient. She continues to have some intermittent chest pressure that radiates to the left arm. She denies any shortness of breath. She states that she has some mild lower abdominal pain, which is chronic for her because of her diverticulosis. She slept well. No other complaints. LABORATORY DATA: Sodium 139, potassium 4.3, chloride 107, carbon dioxide 24, anion gap 12, creatinine 0.82, glucose 131. Troponin negative x2. Total cholesterol 163, triglycerides 162, LDL 98, HDL 33. PHYSICAL EXAMINATION: VITAL SIGNS: Blood pressure is 119/56, pulse is 60, temp is 98, respirations are 20, O2 saturation is 95% on room air. GENERAL: Obese, female, resting comfortably in bed, in no acute distress. NECK: No lymphadenopathy. No obvious JVD. CV: S1 and S2. Regular rate and rhythm. No appreciable murmurs, rubs, or gallops. LUNGS: Regular respiratory rate and pattern. ABDOMEN: Positive bowel sounds. Obese. EXTREMITIES: +2 DP pulses bilaterally. No edema. ASSESSMENT: 1. Chest pain with atypical and typical features in patient with multiple risk factors including diabetes, hypertension, hyperlipidemia, and family history of coronary artery disease, with recent normal MPI in May 2018. 2. Type-2 diabetes mellitus. 3. Diverticulosis. 4. Hypertension. 5. Hyperlipidemia. 6. Obesity. PLAN: The patient has been seen in consultation with Dr. Garber. Per Cardiology, we will make the patient n.p.o. after midnight for possible consideration of left heart catheterization tomorrow with the patient's primary mobile health vehicle operator, Dr. Kulkarni. We will continue p.r.n. nitrates. We will continue her home medications for diverticulosis. Hold metformin. We will use sliding scale insulin if needed. Further recommendations based on hospital course. Job ID: [id number]
[2018-09-23] MEDS: Dicyclomine 10 MG CAP PO PRN ×2 (14:11→20:15)
[2018-09-23] MEDS: Aspirin 81 mg Enteric Coated Tablet PO SCH (20:15)
[2018-09-23] MEDS: Lisinopril 10 MG TAB PO SCH (20:15)
[2018-09-24] MEDS ORDERED: Communication Order-Pharmacy FS SCH (08:00)
[2018-09-24] MEDS ORDERED: Polyethylene Glycol 3350 17 GM Packet PO PRN (08:22)
--- NOTE | 2018-09-24 09:02 | PRG ---
DATE OF SERVICE: 09/24/2018 SUBJECTIVE: The patient is a 53-year-old female with past medical history significant for obesity, type 2 diabetes mellitus, hypertension, hyperlipidemia, and family history of coronary artery disease, who presented to the hospital with complaints of chest pressure radiating to the left arm. ACS has been ruled out in this patient. She does continue to have some intermittent chest discomfort. She has no nausea or vomiting. She does complain of constipation. She has no shortness of breath. No fever or chills. No other complaints. OBJECTIVE: VITAL SIGNS: Blood pressure 116/63, pulse is 72, and O2 sat is 97% on room air. GENERAL: The patient is an obese female, resting comfortably in bed, in no acute distress. HEENT: Head is atraumatic and normocephalic. Mucous membranes are moist. Extraocular eye movements intact. NECK: Supple, obese, no lymphadenopathy. Trachea is midline. No JVD. CV: S1 and S2. Regular rate and rhythm. No appreciable murmurs, rubs or gallops. LUNGS: Regular respiratory rate and pattern. Clear to auscultation bilaterally. ABDOMEN: Positive bowel sounds. Soft. EXTREMITIES: No edema. +2 DP pulses. Lower extremities are warm and well perfused. SKIN: Warm and dry. No rashes. NEUROLOGIC: Awake, alert, and oriented. Cranial nerves 2 through 12 intact. Nonfocal. LABORATORY DATA: Laboratory data from September 23 reveals sodium 139, potassium 4.3, chloride 107, BUN 15, creatinine 0.82, GFR 72, and glucose 131. ASSESSMENT: 1. Chest pain with atypical and typical features and the patient with multiple risk factors including diabetes, hypertension, hyperlipidemia, family history of coronary artery disease, recent normal MPI in May 2018. 2. Constipation. 3. Diverticulosis. 4. Type 2 diabetes mellitus. 5. Hypertension. 6. Hyperlipidemia/hypertriglyceridemia. 7. Obesity. PLAN: The patient's primary numerical control tool programmer, Dr. Kulkarni, is recommending left heart catheterization to be performed tomorrow. Risks and benefits of the procedure have been explained to the patient including bleeding, stroke, and contrast-induced nephropathy. The patient wishes to proceed. N.p.o. after midnight. MiraLAX for constipation. Continue home medications including beta-marilou and ALESIA inhibitor. Further recommendations based on findings of left heart catheterization tomorrow. Job ID: [id number]
[2018-09-24] MEDS: Calcium Carbonate + Vit D 1 TAB PO SCH (09:18)
[2018-09-24] MEDS: metroNIDAZOLE 500 MG TAB PO SCH ×3 (09:18→20:38)
[2018-09-24] MEDS: Metoprolol Tartrate 50 MG TAB PO SCH ×2 (09:19→20:38)
[2018-09-24] MEDS: Sodium Chloride 0.9% 1,000 ML IV SCH ×2 (15:37→17:46)
[2018-09-24] MEDS: Lisinopril 10 MG TAB PO SCH (20:37)
[2018-09-24] MEDS: Aspirin 81 mg Enteric Coated Tablet PO SCH (20:38)
[2018-09-24] MEDS: HYDROcodone/Acetaminophen 5/325 mg Tablet PO PRN (20:38)
[2018-09-24] MEDS ORDERED: Atorvastatin Calcium 40 MG TAB PO SCH (21:00)
[2018-09-25] MEDS: Sodium Chloride 0.9% 1,000 ML IV SCH (01:36)
[2018-09-25] MEDS: Metoprolol Tartrate 50 MG TAB PO SCH (05:18)
[2018-09-25] MEDS: Calcium Carbonate + Vit D 1 TAB PO SCH (05:18)
[2018-09-25] MEDS: metroNIDAZOLE 500 MG TAB PO SCH ×2 (05:18→14:11)
[2018-09-25] MEDS ORDERED: Midazolam HCl 2 mg/2 ml Vial ONE (07:19)
[2018-09-25] MEDS ORDERED: Fentanyl 100 MCG/2 ML VIAL ONE (07:20)
[2018-09-25] MEDS ORDERED: Heparin 10,000 UNITS/1 ML VIAL ONE (07:28)
[2018-09-25] MEDS ORDERED: Sodium Chloride 0.9% 200 ML IV PRN (07:52)
[2018-09-25] MEDS ORDERED: Acetaminophen/Codeine 30-300mg Tablet PO PRN ×2 (07:52)
[2018-09-25] MEDS ORDERED: Nitroglycerin 0.4 MG TAB (25 Tab Bottle) SL PRN (07:52)
[2018-09-25] MEDS ORDERED: Sodium Chloride 0.9% 1,000 ML IV SCH (07:53)
[2018-09-25] MEDS ORDERED: Morphine 2 MG/ML SYRINGE SLOW IVP SCH (10:15)
[2018-09-25] MEDS ORDERED: Iopamidol 370 76% 100 ML VIAL ONE (10:20)
[2018-09-25 16:29] VITALS: BP 151/70; TEMP 97.8
--- NOTE | 2018-09-26 05:44 | DIS ---
DATE OF ADMISSION: 09/22/2018 DATE OF DISCHARGE: 09/25/2018 ALLERGIES: NO KNOWN DRUG ALLERGIES. CHIEF COMPLAINT: Chest pain. FINAL DIAGNOSES: 1. Noncardiac chest pain. Left heart catheterization revealed normal coronary arteries. 2. Hyperlipidemia. 3. Type 2 diabetes mellitus. 4. Hypertension. 5. Diverticulosis. 6. Obesity. PROCEDURES PERFORMED: Left heart catheterization using a femoral approach by Dr. Kulkarni. LABORATORY RESULTS: CBC on September 22, 2018, showed white blood cell count 9.7, hemoglobin 13.1, hematocrit 39.6, MCV 86.8, platelets 324. D-dimer was normal at 0.27. Most recent labs included a cholesterol panel which showed triglycerides 162, total cholesterol 163, LDL 98, HDL 33. Her troponin was negative x2. Sodium 139, potassium 4.3, creatinine 0.82. IMAGING RESULTS: Chest x-ray performed on September 22, 2018, showed no active intrathoracic disease. Cath in lab performed on September 25, 2018, showed normal coronary arteries and good ventricular function. CONSULTATIONS: Dr. Garber and Dr. Kulkarni of Cardiology. VITAL SIGNS: Blood pressure 132/63, pulse was 58, O2 saturation is 96% on room air, respirations are 16. HOSPITAL COURSE: The patient is a pleasant 53-year-old female with past medical history significant for obesity, type 2 diabetes mellitus, hypertension, hyperlipidemia, and family history of coronary artery disease, who presented to the hospital with complaints of chest pressure which radiated to the left arm. The patient's symptoms have been waxing and waning over the past 2 days; however, the morning of her admission, they became worse, and so she presented to the ER for further workup. She stated that the chest pain had some associated shortness of breath with it, and diaphoresis at one point. Given the fact that she had a recent Cardiolite stress test performed in May which was normal and showed no evidence of reversible ischemia, Cardiology was consulted in the case that this is her 2nd admission for chest pain in the past [address] Kulkarni performed a left heart catheterization today which revealed normal coronary arteries and normal left ventricular systolic function. PHYSICAL EXAMINATION: GENERAL: The patient is awake and alert, comfortable, in no distress, lying comfortably in bed. HEENT: Atraumatic, normocephalic. Eye movements intact. NECK: Supple. No lymphadenopathy. No carotid bruits. RESPIRATORY: Regular respiratory rate and pattern. Clear to auscultation bilaterally. CV: S1 and S2. Regular rate and rhythm. No appreciable murmurs, rubs, or gallops. GI: Soft and nontender. Normal bowel sounds. Obese. PERIPHERAL VASCULAR: No lower extremity pitting edema. +2 DP pulses bilaterally. MUSCULOSKELETAL: No joint effusion or swelling. NEUROLOGIC: Cranial nerves II through XII intact. No focal deficits. SKIN: Warm and dry. No rashes. No discoloration. CONDITION AT DISCHARGE: Stable. DISCHARGE MEDICATIONS: The patient will continue her home medication regimen which includes, 1. Aspirin 81 mg daily. 2. Calcium carbonate/vitamin D3 one tablet daily. 3. Dicyclomine 10 mg capsule, one capsule p.o. t.i.d. p.r.n. 4. Esomeprazole 20 mg capsule, one capsule daily. 5. Levofloxacin 750 mg tablet daily. 6. Metformin 500 mg tablet b.i.d. 7. Fiber Therapy 500 mg tablet one tablet p.r.n. 8. Metoprolol tartrate 100 mg p.o. q.a.m. and 50 mg p.o. at bedtime. 9. Metronidazole 500 mg tablet p.o. t.i.d. 10. MiraLAX 17 g pack, one pack daily. 11. Lisinopril 10 mg tablet one tablet p.o. at bedtime. 12. Her Lipitor was increased by Dr. Kulkarni from 40 mg p.o. at bedtime to 80 mg p.o. at bedtime. DISCHARGE DISPOSITION: Home. PLAN: Post catheterization groin instructions have been given to the patient including no heavy lifting for the next week along with no soaking tub baths. She will continue aggressive risk factor modification including weight loss, diet, and exercise. She will continue aspirin, statin, lisinopril, and her metformin. Regarding her diverticulosis, she will follow up with her specialist providers as already planned. She will be discharged from the hospital today in good condition. Job ID: [id number]
--- NOTE | 2018-09-27 09:43 | EKG ---
Test Reason : Blood Pressure : / mmHG Vent. Rate : 076 BPM Atrial Rate : 076 BPM P-R Int : 130 ms QRS Dur : 088 ms QT Int : 392 ms P-R-T Axes : 040 028 031 degrees QTc Int : 441 ms Normal sinus rhythm Low voltage QRS Borderline ECG Confirmed by MIYA LING, ARNOLDO Walden ([id number]), supervising editor news reel LEXA MONTANEZ ([id number]) on 09/27/2018 9:43:39 AM Referred By: Confirmed By:ARNOLDO HOLLIDAY MD
== END 2018-09-25 17:11 | disposition home or self-care (01) ==
LOC: ERS 07:02 → ERHOLD 09:00 → 2SW 14:59
PROVIDERS: ADMIT Family Medicine; ATTEND Family Medicine
PROC: 4A023N7 Measurement of Cardiac Sampling and Pressure, Left Heart, Percutaneous Approach (ICD-10-PCS; principal; 2018-09-25)
PROC: B2111ZZ Fluoroscopy of Multiple Coronary Arteries using Low Osmolar Contrast (ICD-10-PCS; 2018-09-25)
DX: R07.89 Other chest pain (principal); E11.9 Type 2 diabetes mellitus without complications; E78.5 Hyperlipidemia, unspecified; F41.8 Other specified anxiety disorders; I10 Essential (primary) hypertension; K57.90 Diverticulosis of intestine, part unspecified, without perforation or abscess without bleeding; K59.00 Constipation, unspecified; E66.9 Obesity, unspecified; Z68.43 Body mass index [BMI] 50.0-59.9, adult; Z79.82 Long term (current) use of aspirin; Z79.84 Long term (current) use of oral hypoglycemic drugs; Z79.899 Other long term (current) drug therapy
CPT/HCPCS: 36415; 36416; 71045; 76942; 80048; 80053; 80061; 82550; 83690; 84484; 85025; 85347; 85379; 93005; 93458; 94760; 96361; 96374; 99152; 99153; C1769; G0378; J1644; J2250; J2270; J3010; Q9967

== ENCOUNTER 2018-10-10 08:46 | Outpatient (CLI) | payer OTHER | END 2018-10-10 08:47 | disposition home or self-care (01) | LOC: DTY/OP 08:46 | PROVIDERS: ATTEND Specialist | DX: Z01.818 Encounter for other preprocedural examination (principal); E66.01 Morbid (severe) obesity due to excess calories | CPT/HCPCS: 97802 ==

== ENCOUNTER 2018-10-17 06:02 | Day surgery (SDC) | payer OTHER ==
[2018-10-16 09:07] VITALS: BMI 54.0
--- NOTE | 2018-10-17 11:57 | OP ---
DATE OF PROCEDURE: 10/17/2018 PROCEDURE PERFORMED: Esophagogastroduodenoscopy with biopsy. INDICATION FOR PROCEDURE: Gastroesophageal reflux disease. DESCRIPTION OF PROCEDURE: After the risks and benefits of the procedure were explained to the patient including risks of bleeding, infection, perforation, reactions to anesthesia, aspiration and/or pain, informed consent was obtained. The patient was then taken to the endoscopy suite, where deep sedation was administered via propofol and anesthesia support. Once adequate sedation was achieved, the standard gastroscope was introduced into the mouth with intubation of the esophagus, stomach, and the proximal small intestines with the findings listed below. The patient tolerated the procedure well with no immediate perioperative complications. Upon completion of the procedure, the patient was then taken to Day Stay in satisfactory condition. FINDINGS: Esophagus: Normal-appearing mucosa was seen in the proximal, mid, and distal esophagus. There was no evidence of erosions, ulcerations, mass, lesions, active/recent bleeding or hiatal hernia. Stomach: Minimally increased mucosal erythema and a slight mosaic pattern was seen in the gastric cardia, fundus, and proximal body without any other associated abnormalities. Random biopsies were taken from this region for further evaluation. Otherwise, normal-appearing mucosa was seen in the distal gastric body, antrum, incisura, and greater curvature. There was no evidence of erosions, ulcerations, mass, lesions, or active/recent bleeding. Duodenum: Normal-appearing mucosa was seen in both the duodenal bulb and second portion of the duodenum. There was no evidence of erosions, ulcerations, mass, lesions, or active/recent bleeding. IMPRESSION: 1. Mild nonspecific gastropathy in the proximal stomach, status post biopsies. 2. Otherwise, normal upper endoscopy. RECOMMENDATIONS: 1. We will follow up on the biopsy results with further care dictated by pathology report. 2. We would have the patient follow up in the GI Clinic in 3 weeks for further evaluation of GERD and/or left lower quadrant abdominal pain. 3. We would continue PPI daily as already taking. Job ID: [id number]
[2018-10-17] MEDS ORDERED: PROPOFOL 200 MG/20 ML VIAL ONE (15:45)
== END 2018-10-17 09:00 | disposition home or self-care (01) ==
LOC: SDC 06:02
PROVIDERS: ATTEND Internal Medicine
PROC: 0DB78ZX Excision of Stomach, Pylorus, Via Natural or Artificial Opening Endoscopic, Diagnostic (ICD-10-PCS; principal; 2018-10-17)
DX: K29.50 Unspecified chronic gastritis without bleeding (principal); B96.81 Helicobacter pylori [H. pylori] as the cause of diseases classified elsewhere; K21.9 Gastro-esophageal reflux disease without esophagitis; I10 Essential (primary) hypertension; E11.9 Type 2 diabetes mellitus without complications; E66.9 Obesity, unspecified; Z68.43 Body mass index [BMI] 50.0-59.9, adult; Z79.82 Long term (current) use of aspirin; Z79.84 Long term (current) use of oral hypoglycemic drugs; Z79.899 Other long term (current) drug therapy; Z88.8 Allergy status to other drugs, medicaments and biological substances
CPT/HCPCS: 88305; 88312; J2704

== ENCOUNTER 2018-11-12 11:19 | Outpatient (CLI) | payer OTHER | END 2018-11-12 11:20 | disposition home or self-care (01) | LOC: DTY/OP 11:19 | PROVIDERS: ATTEND Specialist | DX: Z01.818 Encounter for other preprocedural examination (principal); E66.01 Morbid (severe) obesity due to excess calories | CPT/HCPCS: 97802 ==

== ENCOUNTER 2018-11-20 14:45 | Emergency (ER) | payer OTHER ==
--- NOTE | 2018-11-20 15:46 | RAD ---
Exam:Left foot 3 views HISTORY: Pain. COMPARISON: None FINDINGS: Lisfranc alignment is maintained. No fracture. No cortical irregularity or periosteal react ion. Hypertrophy of Achilles tendon insertion site is noted. IMPRESSION: No acute abnormality.
== END 2018-11-20 16:15 | disposition home or self-care (01) ==
LOC: ERS 14:45
DX: M79.672 Pain in left foot (principal); E11.9 Type 2 diabetes mellitus without complications; E78.5 Hyperlipidemia, unspecified; F32.9 Major depressive disorder, single episode, unspecified; F41.9 Anxiety disorder, unspecified; Z79.899 Other long term (current) drug therapy; Z79.84 Long term (current) use of oral hypoglycemic drugs

== ENCOUNTER 2018-12-10 09:21 | Outpatient (CLI) | payer OTHER | END 2018-12-10 09:22 | disposition home or self-care (01) | LOC: DTY/OP 09:21 | PROVIDERS: ATTEND Specialist | DX: Z01.818 Encounter for other preprocedural examination (principal); E66.01 Morbid (severe) obesity due to excess calories | CPT/HCPCS: 97802 ==

== ENCOUNTER 2019-01-07 21:56 | Emergency (ER) | payer OTHER ==
[2019-01-07] MEDS ORDERED: Ketorolac Tromethamine 30 MG/ML VIAL ONE (22:45)
--- NOTE | 2019-01-07 22:54 | RAD ---
RIGHT KNEE: 01/07/19 Four views. HISTORY: Fall with knee pain. Injury. Joint spaces are maintained. Mild degenerative changes are noted. No acute fracture. Evidence of smal l joint effusion noted in the suprapatellar region. IMPRESSION: No acute fracture. Mild degenerative change and joint effusion noted. POS: OFF
== END 2019-01-07 23:05 | disposition home or self-care (01) ==
LOC: ERS 21:56
DX: M25.561 Pain in right knee (principal); E11.9 Type 2 diabetes mellitus without complications; E78.5 Hyperlipidemia, unspecified; I10 Essential (primary) hypertension; F32.9 Major depressive disorder, single episode, unspecified; F41.9 Anxiety disorder, unspecified; Z79.82 Long term (current) use of aspirin; Z79.84 Long term (current) use of oral hypoglycemic drugs; Z79.899 Other long term (current) drug therapy; W18.30XA Fall on same level, unspecified, initial encounter
CPT/HCPCS: 96372; J1885

== ENCOUNTER 2019-01-12 08:50 | Outpatient (CLI) | payer OTHER | END 2019-01-12 08:51 | disposition home or self-care (01) | LOC: DTY/OP 08:50 | PROVIDERS: ATTEND Specialist | DX: Z01.818 Encounter for other preprocedural examination (principal); E66.01 Morbid (severe) obesity due to excess calories | CPT/HCPCS: 97802 ==

== ENCOUNTER 2019-02-04 12:51 | Emergency (ER) | payer OTHER ==
[2019-02-04 14:13] LABS: #Basophils 0.1 thou/uL (0.0-0.2); #Eosinphils 0.2 thou/uL (0.0-0.7); #Lymphocytes 3.5 thou/uL (1.20-3.40); %Basophils 0.4 % (0.0-1.0); %Eosinophils 1.5 % (0.0-10.0); %Lymphocytes 23.9 % (21.0-51.0); %Monocytes 6.5 % (0.0-10.0); %Neutrophils 67.7 % (42.0-75.0); Hemoglobin 13.6 g/dL (12.0-16.0); Mean Corpuscular HGB CONC 33.3 g/dL (32.0-36.0); Mean Corpuscular Hemoglobin 28.5 pg (27.0-31.0); Mean Corpuscular Volume 85.6 fL (78.0-98.0); Mean Platelet Volume 7.1 fL (7.4-10.4); Platelet Count 341 thou/uL (130-400); Red Blood Cell (RBC) Count 4.77 mill/uL (4.20-5.40); White Blood Cell (WBC) Count 14.7 thou/uL (4.8-10.8)
[2019-02-04 14:35] LABS: ALT (SGPT) 26 U/L (8-55); AST (SGOT) 23 U/L (5-34); Alkaline Phosphatase 138 U/L (40-150); Anion Gap 14 mmol/L (10-20); BUN (Urea Nitrogen) 13 mg/dL (9.8-20.1); Bilirubin, Total 0.4 mg/dL (0.2-1.2); Calc. Creatinine Clearance 0 mL/min (70-130); Calcium 9.6 mg/dL (7.8-10.44); Carbon Dioxide 23 mmol/L (22-29); Chloride 104 mmol/L (98-107); Estimated GFR-MDRD 54; Globulin 3.6 g/dL (2.4-3.5); Glucose 254 mg/dL (70-105); Lipase 8 U/L (8-78); Protein, Total 7.6 g/dL (6.0-8.3); Sodium 137 mmol/L (136-145)
[2019-02-04] MEDS ORDERED: ISOVUE-370 76%-LOCM 1 ML ONE (15:43)
--- NOTE | 2019-02-04 16:08 | CT ---
ABDOMEN CT WITH CONTRAST PELVIC CT WITH CONTRAST 02/04/19 COMPARISON: 07/16/18. HISTORY: Left sided abdominal pain. FINDINGS: ABDOMEN CT: Dependent atelectatic changes in the lung bases. Heart size is normal. No significant pericardial fl uid. The visualized aorta has a normal caliber. No periaortic fat stranding. Portal vein is patent. Hypoattenuation of the liver due to hepatic steatosis. Spleen and adrenal glan ds have appropriate enhancement. Stable atrophy of the pancreas. Symmetric enhancement of the kidneys. Bilaterally, no obstructive uropathy. No gastrohepatic, retrocrural, or periportal lymphadenopathy. No mesenteric mass, lymphadenopathy, free air or significant free fluid. Limited evaluation of the alimentary canal by the lack of oral contrast. No evidence of bowel obstruc tion. Ileocecal junction is normal. Normal caliber appendix. Scattered fecal material in a nondistend ed, nondilated colon. There is evidence of bowel wall thickening with pericolonic fat stranding invo lving the mid sigmoid colon, compatible with diverticulitis. No evidence of abscess, perforation or significant extraluminal air. CT PELVIS: No mass, lymphadenopathy, free air or significant free fluid. Urinary bladder is unremarkable. IMPRESSION: Diverticulitis. No evidence of abscess or perforation. POS: OFF
[2019-02-04 16:21] LABS: Bilirubin Negative (Negative); Blood, Urine Negative (Negative); Clarity Clear (Clear); Glucose, Urine (Dipstick) Greater than 1000 mg/dL (Negative); Leukocyte Negative Leu/uL (Negative); Nitrite Negative (Negative); Protein, Urine (Dipstick) 10 mg/dL (Neg-Trace); Urobilinogen Normal mg/dL (Less than 2)
[2019-02-04 16:22] LABS: Pregnancy Test - Urine (BHCG) Negative (Negative); Pregu Control Background? CLEAR/WHITE (CLR/WHITE); Pregu Control Bar Appear? YES (CONTROL BAR); Specific Gravity 1.059 (1.002-1.036)
[2019-02-04] MEDS ORDERED: Ondansetron PF 4 MG/2 ML Vial ONE ×3 (16:31→17:00)
[2019-02-04] MEDS ORDERED: Morphine 4 MG/ML VIAL ONE (16:31)
== END 2019-02-04 17:40 | disposition home or self-care (01) ==
LOC: ERS 12:51
DX: K57.32 Diverticulitis of large intestine without perforation or abscess without bleeding (principal); E11.9 Type 2 diabetes mellitus without complications; E78.5 Hyperlipidemia, unspecified; E78.00 Pure hypercholesterolemia, unspecified; I10 Essential (primary) hypertension; F32.9 Major depressive disorder, single episode, unspecified; F41.9 Anxiety disorder, unspecified; Z79.899 Other long term (current) drug therapy; Z79.84 Long term (current) use of oral hypoglycemic drugs
CPT/HCPCS: 36415; 74177; 80053; 81003; 81025; 83690; 84484; 85025; 94760; 96361; 96374; 96375; J2270; J2405; Q9966

== ENCOUNTER 2019-02-10 09:23 | Outpatient (CLI) | payer OTHER | END 2019-02-10 09:24 | disposition home or self-care (01) | LOC: DTY/OP 09:23 | PROVIDERS: ATTEND Specialist | DX: Z01.818 Encounter for other preprocedural examination (principal); E66.01 Morbid (severe) obesity due to excess calories | CPT/HCPCS: 97802 ==

== ENCOUNTER 2019-03-23 08:53 | Outpatient (CLI) | payer OTHER ==
--- NOTE | 2019-03-26 22:53 | EKG ---
Test Reason : PREOP Blood Pressure : / mmHG Vent. Rate : 072 BPM Atrial Rate : 072 BPM P-R Int : 158 ms QRS Dur : 090 ms QT Int : 404 ms P-R-T Axes : 044 034 036 degrees QTc Int : 442 ms Normal sinus rhythm Normal ECG When compared with ECG of 22-SEP-2018 07:09, No significant change was found Confirmed by Joni MCKINNEY ([id number]) on 03/26/2019 10:52:41 PM Referred By: VANI Confirmed By:Joni MCKINNEY
== END 2019-03-23 08:54 | disposition home or self-care (01) ==
LOC: EKG 08:53
PROVIDERS: ATTEND Specialist
DX: E66.01 Morbid (severe) obesity due to excess calories (principal)
CPT/HCPCS: 93005; 93010

== ENCOUNTER 2019-03-27 19:30 | Outpatient (CLI) | payer OTHER | END 2019-03-27 19:31 | disposition home or self-care (01) | LOC: SLEEPLAB 19:30 | PROVIDERS: ATTEND Internal Medicine | DX: G47.33 Obstructive sleep apnea (adult) (pediatric) (principal); R06.83 Snoring; R09.89 Other specified symptoms and signs involving the circulatory and respiratory systems; R53.83 Other fatigue; R35.1 Nocturia; I10 Essential (primary) hypertension; E11.9 Type 2 diabetes mellitus without complications; G47.31 Primary central sleep apnea; Z68.43 Body mass index [BMI] 50.0-59.9, adult | CPT/HCPCS: 95811 ==

== ENCOUNTER 2019-04-01 12:56 | Emergency (ER) | payer OTHER ==
[2019-04-01 13:57] LABS: #Basophils 0.1 thou/uL (0.0-0.2); #Eosinphils 0.3 thou/uL (0.0-0.7); #Lymphocytes 4.1 thou/uL (1.20-3.40); #Monocytes 0.9 thou/uL (0.11-0.59); #Neutrophils 7.5 thou/uL (1.40-6.50); %Basophils 0.7 % (0.0-1.0); %Eosinophils 2.2 % (0.0-10.0); %Lymphocytes 31.8 % (21.0-51.0); %Neutrophils 58.3 % (42.0-75.0); Hemoglobin 14.1 g/dL (12.0-16.0); Mean Corpuscular HGB CONC 34.3 g/dL (32.0-36.0); Mean Corpuscular Hemoglobin 29.7 pg (27.0-31.0); Mean Corpuscular Volume 86.5 fL (78.0-98.0); Mean Platelet Volume 7.1 fL (7.4-10.4); Platelet Count 299 thou/uL (130-400); RBC Distribution Width 11.9 % (11.5-14.5); Red Blood Cell (RBC) Count 4.75 mill/uL (4.20-5.40); White Blood Cell (WBC) Count 12.9 thou/uL (4.8-10.8)
[2019-04-01 14:27] LABS: ALT (SGPT) 35 U/L (8-55); AST (SGOT) 36 U/L (5-34); Alkaline Phosphatase 125 U/L (40-110); Anion Gap 13 mmol/L (10-20); BUN (Urea Nitrogen) 12 mg/dL (9.8-20.1); Bilirubin, Total 0.4 mg/dL (0.2-1.2); Calc. Creatinine Clearance 0 mL/min (70-130); Calcium 9.6 mg/dL (7.8-10.44); Carbon Dioxide 28 mmol/L (22-29); Chloride 102 mmol/L (98-107); Estimated GFR-MDRD 55; Globulin 3.6 g/dL (2.4-3.5); Glucose 210 mg/dL (70-105); Lipase 6 U/L (8-78); Potassium 3.8 mmol/L (3.5-5.1); Protein, Total 7.6 g/dL (6.0-8.3); Sodium 139 mmol/L (136-145)
[2019-04-01 15:39] LABS: Bilirubin Negative (Negative); Blood, Urine Negative (Negative); Clarity Clear (Clear); Glucose, Urine (Dipstick) Normal (Negative); Leukocyte Negative Leu/uL (Negative); Nitrite Negative (Negative); Protein, Urine (Dipstick) Negative (Neg-Trace); Urobilinogen Normal mg/dL (Less than 2)
--- NOTE | 2019-04-01 15:39 | CT ---
CT ABDOMEN AND PELVIS WITH IV CONTRAST: HISTORY: Abdominal pain, cramping and diarrhea. COMPARISON: 02/04/2019 FINDINGS: The lung bases are unremarkable. The liver demonstrate decreased attenuation compared to the spleen, consistent with fatty infiltration. No focal mass or intrahepatic ductal dilatation is seen. No calci fied gallstones are noted. The spleen, pancreas, adrenal glands and right kidney are normal. There is a small scar in the left kidney. No free air, free fluid or lymphadenopathy is seen in the abdomen or pelvis. The small bowel loops ar e not abnormally dilated. A normal appearing appendix is present. There is colonic diverticulosis wit hout evidence of diverticulitis. No abnormally loculated fluid collection is noted to suggest abscess formation. The patient is post hysterectomy. There is no evidence of aneurysmal dilatation of the abdominal aorta. There are degenerative changes in the spine. IMPRESSION: 1. Fatty liver. 2. Colonic diverticulosis without diverticulitis. POS: [facility]
== END 2019-04-01 16:08 | disposition home or self-care (01) ==
LOC: ERS 12:56
DX: R19.7 Diarrhea, unspecified (principal); E11.9 Type 2 diabetes mellitus without complications; E78.5 Hyperlipidemia, unspecified; I10 Essential (primary) hypertension; F41.9 Anxiety disorder, unspecified; F32.9 Major depressive disorder, single episode, unspecified; Z79.82 Long term (current) use of aspirin; Z79.899 Other long term (current) drug therapy; Z79.891 Long term (current) use of opiate analgesic; Z79.84 Long term (current) use of oral hypoglycemic drugs
CPT/HCPCS: 36415; 74177; 80053; 81003; 83690; 85025

== ENCOUNTER 2019-05-29 10:46 | Outpatient (CLI) | payer OTHER ==
[2019-05-29 11:53] LABS: #Basophils 0.1 thou/uL (0.0-0.2); #Eosinphils 0.2 thou/uL (0.0-0.7); #Monocytes 0.9 thou/uL (0.11-0.59); #Neutrophils 6.5 thou/uL (1.40-6.50); %Basophils 0.7 % (0.0-1.0); %Eosinophils 1.8 % (0.0-10.0); %Lymphocytes 34.2 % (21.0-51.0); %Monocytes 7.8 % (0.0-10.0); %Neutrophils 55.5 % (42.0-75.0); Hemoglobin 14.5 g/dL (12.0-16.0); Mean Corpuscular HGB CONC 33.9 g/dL (32.0-36.0); Mean Corpuscular Hemoglobin 29.5 pg (27.0-31.0); Platelet Count 327 thou/uL (130-400); RBC Distribution Width 11.9 % (11.5-14.5); White Blood Cell (WBC) Count 11.7 thou/uL (4.8-10.8)
[2019-05-29 11:58] LABS: Hemoglobin A1c 8.3 % (4.0-6.0)
[2019-05-29 12:10] LABS: ALT (SGPT) 69 U/L (8-55); AST (SGOT) 61 U/L (5-34); Albumin 4.4 g/dL (3.5-5.0); Alkaline Phosphatase 115 U/L (40-110); Anion Gap 10 mmol/L (10-20); BUN (Urea Nitrogen) 14 mg/dL (9.8-20.1); Bilirubin, Total 0.5 mg/dL (0.2-1.2); Calc. Creatinine Clearance 0 mL/min (70-130); Calcium 10.1 mg/dL (7.8-10.44); Carbon Dioxide 27 mmol/L (22-29); Chloride 106 mmol/L (98-107); Estimated GFR-MDRD 64; Globulin 3.1 g/dL (2.4-3.5); Glucose 121 mg/dL (70-105); Potassium 4.4 mmol/L (3.5-5.1); Protein, Total 7.5 g/dL (6.0-8.3); Sodium 139 mmol/L (136-145)
== END 2019-05-29 10:47 | disposition home or self-care (01) ==
LOC: LABBT 10:46
PROVIDERS: ATTEND Specialist
DX: Z01.818 Encounter for other preprocedural examination (principal); E66.01 Morbid (severe) obesity due to excess calories
CPT/HCPCS: 80053; 83036; 85025; 93005; 93010

== ENCOUNTER 2019-05-29 12:00 | Inpatient (IN) | payer OTHER ==
[2019-05-29 11:02] VITALS: BMI 51.5
[2019-06-04] MEDS ORDERED: Ketorolac Tromethamine 30 MG/ML VIAL ONE (06:53)
[2019-06-04] MEDS ORDERED: Heparin 5,000 UNITS/ML VIAL ONE (06:54)
[2019-06-04] MEDS ORDERED: cefOXitin Sodium/Dextrose,Iso 2 GM in Premix Bag 1 BAG IVPB SCH (07:15)
[2019-06-04] MEDS ORDERED: Lidocaine 1% w/Epinephrine 1:100K 20 ML VIAL ONE (07:18)
[2019-06-04] MEDS ORDERED: Bupivacaine 0.25% HCL 30 ML VIAL ONE (07:18)
[2019-06-04] MEDS ORDERED: Midazolam HCl 2 mg/2 ml Vial ONE (07:31)
[2019-06-04] MEDS ORDERED: Fentanyl 250 MCG/5 ML VIAL ONE (07:50)
[2019-06-04] MEDS ORDERED: Fentanyl 100 MCG/2 ML VIAL ONE (10:10)
[2019-06-04] MEDS ORDERED: Dextrose 50% Abboject 50 ML SYRINGE SLOW IVP PRN (11:17)
[2019-06-04] MEDS ORDERED: Ondansetron PF 4 MG/2 ML Vial IVP PRN (11:17)
[2019-06-04] MEDS ORDERED: Promethazine HCl 25 MG/ML VIAL IM PRN (11:17)
[2019-06-04] MEDS ORDERED: Morphine 2 MG/ML SYRINGE SLOW IVP PRN (11:17)
[2019-06-04] MEDS ORDERED: Dextrose 5% in Water 1,000 ML IV PRN (11:17)
[2019-06-04] MEDS ORDERED: hydrALAZINE 20 MG/ML VIAL SLOW IVP PRN (11:17)
[2019-06-04] MEDS ORDERED: diphenhydrAMINE 50 MG/ML VIAL IVP PRN (11:17)
[2019-06-04] MEDS ORDERED: Pantoprazole 40 MG VIAL IVP SCH (11:45)
[2019-06-04] MEDS: Morphine 4 MG/ML VIAL SLOW IVP PRN ×3 (11:48→20:59)
[2019-06-04] MEDS: 1/2 NS w/KCL 20 mEq 1,000 ML IV SCH ×2 (11:48→17:57)
[2019-06-04] MEDS: Ketorolac Tromethamine 30 MG/ML VIAL IVP SCH ×3 (12:40→23:42)
[2019-06-04] MEDS: Insulin Regular 300 UNITS/3 ML VIAL SC PRN ×2 (12:41→15:46)
[2019-06-04] MEDS: Acetaminophen 1,000 MG in Premix Bag 1 BAG IVPB SCH ×3 (12:41→23:42)
[2019-06-04] MEDS ORDERED: PHENYLEPHRINE-NS 100 MCG/ML 10 ML SYRINGE ONE (13:48)
[2019-06-04] MEDS ORDERED: Dexamethasone 20 MG/5 ML VIAL ONE (13:48)
[2019-06-04] MEDS ORDERED: PROPOFOL 200 MG/20 ML VIAL ONE (13:48)
[2019-06-04] MEDS ORDERED: Glycopyrrolate 0.2 MG/ML 5 ML SYRINGE ONE (13:48)
[2019-06-04] MEDS ORDERED: Rocuronium Bromide 10 MG/ML (10ML VIAL) ONE (13:48)
[2019-06-04] MEDS ORDERED: diphenhydrAMINE 50 MG/ML VIAL ONE (13:48)
[2019-06-04] MEDS ORDERED: Ondansetron PF 4 MG/2 ML Vial ONE (13:48)
--- NOTE | 2019-06-04 16:31 | OP ---
DATE OF PROCEDURE: 06/04/2019 PREOPERATIVE DIAGNOSIS: Morbid obesity with multiple obesity associated comorbidities. POSTOPERATIVE DIAGNOSIS: Morbid obesity with multiple obesity associated comorbidities. PROCEDURE PERFORMED: Laparoscopic vertical sleeve gastrectomy using the ViSiGi device. HEALTH EDUCATION SPECIALIST: Walter Deng, medical student. ANESTHESIA: General endotracheal. INDICATIONS: The patient is a 54-year-old morbidly obese female. She has undergone preoperative evaluation and education, presents this time for laparoscopic sleeve gastrectomy. DESCRIPTION OF OPERATION: Informed consent was obtained. The patient was taken to the operating room where general endotracheal anesthesia was obtained with the patient in supine position. Abdomen was prepped with ChloraPrep and draped in sterile fashion. Local anesthetic was infiltrated and 5 mm supraumbilical incision was created through which Veress needle was passed to the peritoneal cavity and pneumoperitoneum established using carbon dioxide up to a pressure of 15 mmHg. A 5 mm trocar port was passed through this same incision. Laparoscopic camera was passed through this port. Under direct vision, 4 additional ports were placed including bilateral 5 mm subcostal ports, a 12 mm right paramedian port and a 15 mm left paramedian port. A 5 mm epigastric incision was created through which Nathansen retractor was passed into the abdominal cavity and used to retract the left lobe of the liver. The patient was placed into reverse Trendelenburg position. The ViSiGi device was advanced within the stomach and used to decompress this. The pylorus was identified and beginning 4 cm proximal to the pylorus, the omentum and vascular tissue along the greater curvature was divided using the LigaSure in an ascending fashion up to the angle of His. All posterior adhesions were mobilized. The short gastric vessels were carefully divided and then hemostasis was maintained using the LigaSure. Once this was completely mobilized, the ViSiGi was carefully positioned at the level of the pylorus and placed to suction, which was clearly defining the lesser curvature of the stomach. The gastrectomy was then performed using a series of fires of the [place] stapler using a green load followed by a gold load and a series of blue loads until completion of the gastrectomy. The ViSiGi along the lesser curvature was used as a size 36 bougie to guide in the gastric division. Care was taken to avoid narrowing the incisura or the gastroesophageal junction. The integrity of the staple line was then assessed by insufflating gas through the ViSiGi while irrigating along the staple line. There was no evidence of an air leak. There was no evidence of bleeding along the staple line. The resected stomach was then removed through the 15 mm port and the fascia was closed with 0 Vicryl suture using a GraNee needle. I then closed the 12 mm port also using the GraNee needle and 0 Vicryl suture. The Nathansen retractor was removed. All ports and instruments were removed under direct vision. All irrigant was aspirated. Pneumoperitoneum was carefully evacuated. 0.25% Marcaine with epinephrine was infiltrated into each port site. Skin edges approximated with 4-0 Monocryl subcuticular suture. Dermabond was placed externally. There were no complications. The patient tolerated the procedure well and was taken to recovery room in stable condition. FINDINGS: The patient had typical anatomy. There were no intraoperative complications and blood loss was negligible. Several clips were placed along the staple line to ensure appropriate hemostasis. The patient tolerated the procedure well and was taken to recovery room in stable condition. Job ID: [id number]
[2019-06-04] MEDS ORDERED: Enoxaparin Sodium 40 MG/0.4 ML SYRINGE SC SCH (21:00)
[2019-06-05] MEDS: Morphine 4 MG/ML VIAL SLOW IVP PRN (03:34)
[2019-06-05] MEDS: 1/2 NS w/KCL 20 mEq 1,000 ML IV SCH ×3 (03:45→11:53)
[2019-06-05] MEDS: Ketorolac Tromethamine 30 MG/ML VIAL IVP SCH ×2 (05:17→11:54)
[2019-06-05] MEDS: Acetaminophen 1,000 MG in Premix Bag 1 BAG IVPB SCH (05:17)
[2019-06-05 05:36] LABS: #Eosinphils 0.1 thou/uL (0.0-0.7); #Lymphocytes 2.8 thou/uL (1.20-3.40); #Monocytes 1.2 thou/uL (0.11-0.59); #Neutrophils 7.3 thou/uL (1.40-6.50); %Basophils 0.2 % (0.0-1.0); %Eosinophils 0.5 % (0.0-10.0); %Lymphocytes 24.7 % (21.0-51.0); %Monocytes 10.4 % (0.0-10.0); %Neutrophils 64.2 % (42.0-75.0); Hemoglobin 12.4 g/dL (12.0-16.0); Mean Corpuscular HGB CONC 32.8 g/dL (32.0-36.0); Mean Corpuscular Volume 88.3 fL (78.0-98.0); Mean Platelet Volume 7.1 fL (7.4-10.4); Platelet Count 266 thou/uL (130-400); Red Blood Cell (RBC) Count 4.27 mill/uL (4.20-5.40); White Blood Cell (WBC) Count 11.3 thou/uL (4.8-10.8)
[2019-06-05 05:51] LABS: Anion Gap 11 mmol/L (10-20); BUN (Urea Nitrogen) 8 mg/dL (9.8-20.1); Calc. Creatinine Clearance 140 mL/min (70-130); Calcium 8.7 mg/dL (7.8-10.44); Carbon Dioxide 24 mmol/L (22-29); Chloride 105 mmol/L (98-107); Estimated GFR-MDRD 66; Glucose 103 mg/dL (70-105); Potassium 4.6 mmol/L (3.5-5.1); Sodium 135 mmol/L (136-145)
[2019-06-05 07:26] VITALS: TEMP 97.8
[2019-06-05] MEDS ORDERED: Pantoprazole 40 MG VIAL IVP SCH (09:00)
[2019-06-05 11:46] VITALS: BP 137/80
[2019-06-05] MEDS ORDERED: Hydrocodone-Acetamin 15 ML UDCUP PO PRN (12:00)
== END 2019-06-05 16:44 | disposition home or self-care (01) | DRG 620 ==
LOC: SURG A 06-04 05:38
PROVIDERS: ADMIT Specialist; ATTEND Specialist
PROC: 0DB64Z3 Excision of Stomach, Percutaneous Endoscopic Approach, Vertical (ICD-10-PCS; principal; 2019-06-04)
DX: E66.01 Morbid (severe) obesity due to excess calories (principal); K57.92 Diverticulitis of intestine, part unspecified, without perforation or abscess without bleeding; Z68.43 Body mass index [BMI] 50.0-59.9, adult; Z79.899 Other long term (current) drug therapy; I10 Essential (primary) hypertension; F32.9 Major depressive disorder, single episode, unspecified; G47.30 Sleep apnea, unspecified; M10.9 Gout, unspecified; Z90.711 Acquired absence of uterus with remaining cervical stump; E11.9 Type 2 diabetes mellitus without complications; E78.00 Pure hypercholesterolemia, unspecified
CPT/HCPCS: 36415; 36416; 80048; 85025; 88307; 88312; C9113; J0131; J1100; J1200; J1644; J1650; J1815; J1885; J2250; J2270; J2405; J2704; J3010; J3480; S0020

== ENCOUNTER 2019-07-06 17:14 | Emergency (ER) | payer OTHER ==
[2019-07-06 17:41] LABS: #Basophils 0.1 thou/uL (0.0-0.2); #Eosinphils 0.2 thou/uL (0.0-0.7); #Lymphocytes 4.6 thou/uL (1.20-3.40); #Monocytes 1.2 thou/uL (0.11-0.59); #Neutrophils 7.3 thou/uL (1.40-6.50); %Basophils 0.6 % (0.0-1.0); %Eosinophils 1.8 % (0.0-10.0); %Lymphocytes 34.4 % (21.0-51.0); %Monocytes 8.9 % (0.0-10.0); %Neutrophils 54.4 % (42.0-75.0); Hemoglobin 14.6 g/dL (12.0-16.0); Mean Corpuscular HGB CONC 32.6 g/dL (32.0-36.0); Mean Corpuscular Hemoglobin 29.1 pg (27.0-31.0); Mean Platelet Volume 8.3 fL (7.4-10.4); Platelet Count 236 thou/uL (130-400); RBC Distribution Width 13.2 % (11.5-14.5); Red Blood Cell (RBC) Count 5.01 mill/uL (4.20-5.40); White Blood Cell (WBC) Count 13.3 thou/uL (4.8-10.8)
[2019-07-06 18:03] LABS: Albumin 4.2 g/dL (3.5-5.0); Anion Gap 13 mmol/L (10-20); BUN (Urea Nitrogen) 15 mg/dL (9.8-20.1); Bilirubin, Total 0.8 mg/dL (0.2-1.2); Calc. Creatinine Clearance 0 mL/min (70-130); Calcium 10.1 mg/dL (7.8-10.44); Carbon Dioxide 28 mmol/L (22-29); Chloride 104 mmol/L (98-107); Estimated GFR-MDRD 59; Globulin 3.2 g/dL (2.4-3.5); Glucose 97 mg/dL (70-105); Potassium 4.4 mmol/L (3.5-5.1); Protein, Total 7.4 g/dL (6.0-8.3); Sodium 141 mmol/L (136-145)
[2019-07-06 18:04] LABS: ALT (SGPT) 39 U/L (8-55); AST (SGOT) 36 U/L (5-34); Alkaline Phosphatase 91 U/L (40-110); CK (CPK) 114 U/L (29-168); Lipase 27 U/L (8-78); Magnesium 2.3 mg/dL (1.6-2.6)
[2019-07-06 19:11] LABS: Bilirubin Negative (Negative); Blood, Urine Negative (Negative); Clarity Clear (Clear); Glucose, Urine (Dipstick) Normal (Negative); Leukocyte Negative Leu/uL (Negative); Nitrite Negative (Negative); Protein, Urine (Dipstick) 10 mg/dL (Neg-Trace); Urobilinogen Normal mg/dL (Less than 2)
--- NOTE | 2019-07-06 19:32 | RAD ---
EXAM: Chest PA and lateral: HISTORY: Cough. Chills. COMPARISON: 09/22/2018 FINDINGS: Heart: Normal cardiac silhouette Aorta: Unremarkable Pulmonary vessels: Normal Costophrenic angles: Costophrenic angles are clear. Lungs: No consolidation or masses. Pneumothorax: No pneumothorax Osseous structures: No osseous abnormalities IMPRESSION: No acute cardiopulmonary process.
[2019-07-06] MEDS ORDERED: Ondansetron PF 4 MG/2 ML Vial ONE (19:59)
== END 2019-07-06 20:22 | disposition home or self-care (01) ==
LOC: ERS 17:14
DX: J11.1 Influenza due to unidentified influenza virus with other respiratory manifestations (principal); E11.9 Type 2 diabetes mellitus without complications; I10 Essential (primary) hypertension; E78.5 Hyperlipidemia, unspecified; E78.00 Pure hypercholesterolemia, unspecified; F41.9 Anxiety disorder, unspecified; F32.9 Major depressive disorder, single episode, unspecified; G47.30 Sleep apnea, unspecified; Z79.84 Long term (current) use of oral hypoglycemic drugs; Z79.899 Other long term (current) drug therapy
CPT/HCPCS: 36415; 71046; 80053; 81003; 82550; 83605; 83690; 83735; 84425; 85025; 87804; 96361; 96374; J2405

== ENCOUNTER 2019-12-13 11:52 | Emergency (ER) | payer OTHER ==
[2019-12-14 13:56] LABS: SARS-CoV-2 MS2 Positive; SARS-CoV-2 N Gene Negative; SARS-CoV-2 S Gene Negative; SARS-CoV-2 orf1ab Negative
== END 2019-12-13 12:32 | disposition home or self-care (01) ==
LOC: ERS 11:52
DX: Z20.828 Contact with and (suspected) exposure to other viral communicable diseases (principal); E11.9 Type 2 diabetes mellitus without complications; E78.5 Hyperlipidemia, unspecified; E78.00 Pure hypercholesterolemia, unspecified; I10 Essential (primary) hypertension; F41.9 Anxiety disorder, unspecified; F32.9 Major depressive disorder, single episode, unspecified; Z79.84 Long term (current) use of oral hypoglycemic drugs; Z79.899 Other long term (current) drug therapy
CPT/HCPCS: 87635; 99283; U0003

== ENCOUNTER 2020-05-20 06:14 | Emergency (ER) | payer OTHER ==
[2020-05-20] MEDS ORDERED: Ketorolac Tromethamine 30 MG/ML VIAL ONE (06:49)
== END 2020-05-20 06:59 | disposition home or self-care (01) ==
LOC: ERS 06:14
DX: M79.604 Pain in right leg (principal); M79.605 Pain in left leg; G89.29 Other chronic pain; E11.9 Type 2 diabetes mellitus without complications; E78.5 Hyperlipidemia, unspecified; E78.00 Pure hypercholesterolemia, unspecified; Z79.84 Long term (current) use of oral hypoglycemic drugs; Z79.899 Other long term (current) drug therapy
CPT/HCPCS: 96372; 99283; J1885

== ENCOUNTER 2020-05-30 15:20 | Outpatient (CLI) | payer OTHER ==
--- NOTE | 2020-05-30 16:22 | MMO ---
Bilateral MAMMO Bilat Screen DDI. CLINICAL HISTORY: Patient is 55 years old and is seen for screening. The patient has no family history of breast cancer. The patient has no personal history of cancer. VIEWS: The views performed were: bilateral craniocaudal and bilateral mediolateral oblique. FILMS COMPARED: The present examination has been compared to prior imaging studies performed at [facility] on 09/04/2018, and at [facility] on 04/16/2013, 05/25/2015 and 08/01/2017. This study has been interpreted with the assistance of computer-aided detection. MAMMOGRAM FINDINGS: There are scattered fibroglandular densities. There are no suspicious masses, suspicious calcifications, or new areas of architectural distortion. IMPRESSION: THERE IS NO MAMMOGRAPHIC EVIDENCE OF MALIGNANCY. A ROUTINE FOLLOW-UP MAMMOGRAM IN 1 YEAR IS RECOMMENDED. ACR BI-RADS Category 1 - Negative MAMMOGRAPHY NOTE: 1. A negative mammogram report should not delay a biopsy if a dominant of clinically suspicious mass is present. 2. Approximately 10% to 15% of breast cancers are not detected by mammography. 3. Adenosis and dense breasts may obscure an underlying neoplasm. Reported by: SUSANNAH RAYMUNDO MD Electonically Signed: [id number]
== END 2020-05-30 15:21 | disposition home or self-care (01) ==
LOC: BICMAMMO 15:20
PROVIDERS: ATTEND Nurse Practitioner Family
DX: Z12.31 Encounter for screening mammogram for malignant neoplasm of breast (principal)
CPT/HCPCS: 77067

== ENCOUNTER 2020-06-22 08:46 | Emergency (ER) | payer OTHER ==
[2020-06-22 17:11] LABS: SARS-CoV-2 MS2 Positive; SARS-CoV-2 N Gene Negative; SARS-CoV-2 S Gene Negative; SARS-CoV-2 by NAA Not Detected (NotDetected); SARS-CoV-2 orf1ab Negative
== END 2020-06-22 13:42 | disposition home or self-care (01) ==
LOC: ERS 08:46
DX: J02.9 Acute pharyngitis, unspecified (principal); R05 Cough; R09.89 Other specified symptoms and signs involving the circulatory and respiratory systems; Z20.822 Contact with and (suspected) exposure to COVID-19; E11.9 Type 2 diabetes mellitus without complications; E78.5 Hyperlipidemia, unspecified; E78.00 Pure hypercholesterolemia, unspecified; I10 Essential (primary) hypertension
CPT/HCPCS: 87635; 99283; U0003

== ENCOUNTER 2020-12-03 13:27 | Emergency (ER) | payer OTHER ==
[~2020-12-03 13:27] MED LIST: Iopamidol-370 76% 500 ML 1 ML ONE
[2020-12-03 14:17] LABS: #Basophils 0.1 thou/uL (0.0-0.2); #Eosinphils 0.5 thou/uL (0.0-0.7); #Lymphocytes 3.6 thou/uL (1.20-3.40); #Monocytes 0.9 thou/uL (0.11-0.59); #Neutrophils 5.1 thou/uL (1.40-6.50); %Basophils 0.8 % (0.0-1.0); %Eosinophils 5.3 % (0.0-10.0); %Lymphocytes 35.4 % (21.0-51.0); %Monocytes 8.5 % (0.0-10.0); Hemoglobin 13.6 g/dL (12.0-16.0); Mean Corpuscular HGB CONC 34.8 g/dL (32.0-36.0); Mean Corpuscular Hemoglobin 30.8 pg (27.0-31.0); Mean Corpuscular Volume 88.4 fL (78.0-98.0); Platelet Count 316 thou/uL (130-400); RBC Distribution Width 11.4 % (11.5-14.5); Red Blood Cell (RBC) Count 4.41 mill/uL (4.20-5.40); White Blood Cell (WBC) Count 10.1 thou/uL (4.8-10.8)
[2020-12-03 14:38] LABS: ALT (SGPT) 11 U/L (8-55); AST (SGOT) 19 U/L (5-34); Albumin 4.1 g/dL (3.5-5.0); Alkaline Phosphatase 123 U/L (40-110); Anion Gap 14 mmol/L (10-20); BUN (Urea Nitrogen) 19 mg/dL (9.8-20.1); Bilirubin, Total 0.3 mg/dL (0.2-1.2); Calc. Creatinine Clearance 0 mL/min (70-130); Carbon Dioxide 24 mmol/L (22-29); Chloride 108 mmol/L (98-107); Globulin 3.6 g/dL (2.4-3.5); Glucose 105 mg/dL (70-105); Lipase 22 U/L (8-78); Protein, Total 7.7 g/dL (6.0-8.3); Sodium 142 mmol/L (136-145)
[2020-12-03 15:01] LABS: Bacteria/HPF None Seen HPF (None Seen); Bilirubin Negative (Negative); Blood, Urine Negative (Negative); Clarity Clear (Clear); Glucose, Urine (Dipstick) Normal (Negative); Ketone, Urine Negative (Negative); Leukocyte 25 Leu/uL (Negative); Nitrite Negative (Negative); Protein, Urine (Dipstick) Negative (Neg-Trace); RBC/HPF 0-3 HPF (0-3); Specific Gravity, Urine 1.035 (1.002-1.036); WBC/HPF 0-3 HPF (0-3); pH, Urine 5.5 (5.0-9.0)
== END 2020-12-03 18:50 | disposition home or self-care (01) ==
LOC: ERS 13:27
DX: K57.92 Diverticulitis of intestine, part unspecified, without perforation or abscess without bleeding (principal); E11.9 Type 2 diabetes mellitus without complications; E78.5 Hyperlipidemia, unspecified; E78.00 Pure hypercholesterolemia, unspecified; I10 Essential (primary) hypertension
CPT/HCPCS: 36415; 74177; 80053; 81003; 81015; 83690; 85025; Q9967

== ENCOUNTER 2021-02-17 19:38 | Emergency (ER) | payer OTHER ==
[2021-02-18 21:38] LABS: SARS-CoV-2 PCR by NAA Not Detected (NotDetected)
== END 2021-02-17 21:57 | disposition home or self-care (01) ==
LOC: ERS 19:38
DX: R05 Cough (principal); Z20.822 Contact with and (suspected) exposure to COVID-19; E11.9 Type 2 diabetes mellitus without complications; E78.5 Hyperlipidemia, unspecified; E78.00 Pure hypercholesterolemia, unspecified; I10 Essential (primary) hypertension
CPT/HCPCS: 71045; U0003; U0005

== ENCOUNTER 2021-06-28 18:01 | Emergency (ER) | payer OTHER ==
[2021-06-29 09:44] LABS: SARS-CoV-2 PCR by NAA DETECTED (NotDetected)
== END 2021-06-28 18:50 | disposition home or self-care (01) ==
LOC: ERS 18:01
DX: U07.1 COVID-19 (principal); I10 Essential (primary) hypertension; E78.5 Hyperlipidemia, unspecified; E78.00 Pure hypercholesterolemia, unspecified; E11.9 Type 2 diabetes mellitus without complications; Z79.84 Long term (current) use of oral hypoglycemic drugs
CPT/HCPCS: 99284; U0003; U0005

== ENCOUNTER 2021-07-19 08:25 | Emergency (ER) | payer OTHER ==
[2021-07-19 09:21] LABS: #Basophils 0.1 thou/uL (0.0-0.2); #Eosinphils 0.3 thou/uL (0.0-0.7); #Lymphocytes 3.4 thou/uL (1.20-3.40); #Monocytes 0.8 thou/uL (0.11-0.59); #Neutrophils 5.2 thou/uL (1.40-6.50); %Basophils 0.8 % (0.0-1.0); %Eosinophils 2.9 % (0.0-10.0); %Lymphocytes 34.9 % (21.0-51.0); %Monocytes 8.5 % (0.0-10.0); %Neutrophils 52.9 % (42.0-75.0); Hemoglobin 13.4 g/dL (12.0-16.0); Mean Corpuscular HGB CONC 32.7 g/dL (32.0-36.0); Mean Corpuscular Hemoglobin 28.6 pg (27.0-31.0); Mean Corpuscular Volume 87.6 fL (78.0-98.0); Mean Platelet Volume 6.9 fL (7.4-10.4); Platelet Count 367 thou/uL (130-400); RBC Distribution Width 11.6 % (11.5-14.5); Red Blood Cell (RBC) Count 4.66 mill/uL (4.20-5.40); White Blood Cell (WBC) Count 9.8 thou/uL (4.8-10.8)
[2021-07-19 09:34] LABS: ALT (SGPT) 12 U/L (8-55); AST (SGOT) 17 U/L (5-34); Albumin 4.1 g/dL (3.5-5.0); Alkaline Phosphatase 118 U/L (40-110); Anion Gap 12 mmol/L (10-20); BUN (Urea Nitrogen) 15 mg/dL (9.8-20.1); Bilirubin, Total 0.4 mg/dL (0.2-1.2); Calc. Creatinine Clearance 0 mL/min (70-130); Calcium 9.4 mg/dL (7.8-10.44); Carbon Dioxide 23 mmol/L (22-29); Chloride 109 mmol/L (98-107); Globulin 3.5 g/dL (2.4-3.5); Glucose 90 mg/dL (70-105); Potassium 4.3 mmol/L (3.5-5.1); Protein, Total 7.6 g/dL (6.0-8.3); Sodium 140 mmol/L (136-145)
== END 2021-07-19 11:38 | disposition home or self-care (01) ==
LOC: ERS 08:25
DX: R42 Dizziness and giddiness (principal); U07.1 COVID-19; E11.9 Type 2 diabetes mellitus without complications; E78.5 Hyperlipidemia, unspecified; I10 Essential (primary) hypertension
CPT/HCPCS: 36415; 71045; 80053; 84484; 85025; 93005

== ENCOUNTER 2022-01-05 10:54 | Outpatient (CLI) | payer OTHER | END 2022-01-05 10:55 | disposition home or self-care (01) | LOC: BICMAMMO 10:54 | PROVIDERS: ATTEND Nurse Practitioner Family | DX: Z12.31 Encounter for screening mammogram for malignant neoplasm of breast (principal) | CPT/HCPCS: 77067 ==

== ENCOUNTER 2022-03-02 08:51 | Outpatient (CLI) | payer OTHER ==
[2022-03-02 10:55] LABS: Anion Gap 11 mmol/L (10-20); BUN (Urea Nitrogen) 16 mg/dL (9.8-20.1); Calc. Creatinine Clearance 0 mL/min (70-130); Calcium 9.2 mg/dL (7.8-10.44); Carbon Dioxide 24 mmol/L (22-29); Chloride 109 mmol/L (98-107); Estimated GFR 89; Glucose 97 mg/dL (70-105); Potassium 4.4 mmol/L (3.5-5.1); Sodium 140 mmol/L (136-145)
== END 2022-03-02 08:52 | disposition home or self-care (01) ==
LOC: LABBT 08:51
PROVIDERS: ATTEND Surgery Surgery of the Hand
DX: Z01.818 Encounter for other preprocedural examination (principal); Z20.822 Contact with and (suspected) exposure to COVID-19
CPT/HCPCS: 80048; 87811; 93005; 93010

== ENCOUNTER 2022-03-07 10:34 | Day surgery (SDC) | payer OTHER ==
[2022-03-06 10:28] VITALS: BMI 35.9
[2022-03-07] MEDS ORDERED: fentaNYL Citrate/PF 100 MCG/2 ML SYRINGE ONE (12:21)
[2022-03-07] MEDS ORDERED: Midazolam HCl 2 mg/2 ml Vial ONE (12:21)
[2022-03-07] MEDS ORDERED: Bupivacaine HCl 0.5%/Epinephrine 1:200,000/PF 30 ml Vial ONE (12:31)
[2022-03-07] MEDS ORDERED: Lidocaine 1% (PF) 30 ML VIAL ONE (12:31)
[2022-03-07] MEDS ORDERED: EPINEPHrine 1 MG/ML AMP ONE (12:31)
[2022-03-07] MEDS ORDERED: Bacitracin Zinc Ointment 30 gm TUBE ONE (12:31)
[2022-03-07] MEDS ORDERED: Bupivacaine 0.25% 10 ML VIAL ONE (12:34)
[2022-03-07] MEDS ORDERED: Sodium Chloride 0.9% 100 ML ONE (12:42)
[2022-03-07] MEDS ORDERED: CEFAZOLIN 2 GM VIAL ONE (12:42)
[2022-03-07] MEDS ORDERED: Dexamethasone 20 MG/5 ML VIAL ONE (12:54)
[2022-03-07] MEDS ORDERED: Ondansetron PF 4 MG/2 ML Vial ONE (12:54)
[2022-03-07] MEDS ORDERED: Lidocaine 1% MPF 2 ML VIAL ONE (12:54)
[2022-03-07] MEDS ORDERED: ePHEDrine 50 MG/ML VIAL ONE (12:54)
[2022-03-07] MEDS ORDERED: PROPOFOL 200 MG/20 ML VIAL ONE (12:54)
[2022-03-07] MEDS ORDERED: Ketorolac Tromethamine 30 MG/ML VIAL ONE (12:54)
[2022-03-07] MEDS ORDERED: Fentanyl 100 MCG/2 ML VIAL ONE ×2 (14:16→14:46)
[2022-03-07] MEDS ORDERED: HYDROcodone/Acetaminophen 5/325 mg Tablet ONE (15:32)
== END 2022-03-07 16:15 | disposition home or self-care (01) ==
LOC: SDC 10:34
PROVIDERS: ATTEND Surgery Surgery of the Hand
PROC: 0RUT0JZ Supplement Left Carpometacarpal Joint with Synthetic Substitute, Open Approach (ICD-10-PCS; principal; 2022-03-07)
DX: M18.12 Unilateral primary osteoarthritis of first carpometacarpal joint, left hand (principal); M65.331 Trigger finger, right middle finger; M65.341 Trigger finger, right ring finger; M65.351 Trigger finger, right little finger; M65.352 Trigger finger, left little finger; G56.03 Carpal tunnel syndrome, bilateral upper limbs; E11.9 Type 2 diabetes mellitus without complications; Z86.73 Personal history of transient ischemic attack (TIA), and cerebral infarction without residual deficits; Z79.84 Long term (current) use of oral hypoglycemic drugs; Z79.899 Other long term (current) drug therapy
CPT/HCPCS: 76000; C1713; J0171; J0690; J1100; J1885; J2001; J2250; J2405; J2704; J3010; J3490; S0020

== ENCOUNTER 2022-04-28 19:11 | Emergency (ER) | payer OTHER ==
[2022-04-28 19:59] LABS: #Basophils 0.1 thou/uL (0.0-0.2); #Eosinphils 0.4 thou/uL (0.0-0.7); #Neutrophils 6.2 thou/uL (1.40-6.50); %Basophils 0.6 % (0.0-1.0); %Eosinophils 2.8 % (0.0-10.0); %Lymphocytes 39.6 % (21.0-51.0); %Monocytes 7.6 % (0.0-10.0); %Neutrophils 49.3 % (42.0-75.0); Hemoglobin 13.6 g/dL (12.0-16.0); Mean Corpuscular HGB CONC 33.5 g/dL (32.0-36.0); Mean Corpuscular Hemoglobin 29.3 pg (27.0-31.0); Mean Corpuscular Volume 87.5 fl (78.0-98.0); Platelet Count 331 10x3/uL (130-400); RBC Distribution Width 11.6 % (11.5-14.5); Red Blood Cell (RBC) Count 4.62 mill/uL (4.20-5.40); White Blood Cell (WBC) Count 12.5 10x3/uL (4.8-10.8)
[2022-04-28 20:11] LABS: ALT (SGPT) 13 U/L (8-55); AST (SGOT) 24 U/L (5-34); Albumin 4.4 g/dL (3.5-5.0); Alkaline Phosphatase 113 U/L (40-110); Anion Gap 17 mmol/L (10-20); BUN (Urea Nitrogen) 23 mg/dL (9.8-20.1); Bilirubin, Total 0.5 mg/dL (0.2-1.2); CK (CPK) 111 U/L (29-168); Calc. Creatinine Clearance 0 mL/min (70-130); Calcium 9.6 mg/dL (7.8-10.44); Carbon Dioxide 22 mmol/L (22-29); Chloride 106 mmol/L (98-107); Estimated GFR 86; Globulin 3.4 g/dL (2.4-3.5); Glucose 100 mg/dL (70-105); Magnesium 1.9 mg/dL (1.6-2.6); Potassium 4.5 mmol/L (3.5-5.1); Protein, Total 7.8 g/dL (6.0-8.3); Sodium 140 mmol/L (136-145)
[2022-04-28] MEDS ORDERED: Aspirin Chewable 81 MG TAB ONE (20:13)
[2022-04-28] MEDS ORDERED: Acetaminophen 500 MG TAB ONE (20:13)
[2022-04-28] MEDS ORDERED: Ketorolac Tromethamine 30 MG/ML VIAL ONE (20:45)
== END 2022-04-28 23:31 | disposition home or self-care (01) ==
LOC: ERS 19:11
DX: R07.9 Chest pain, unspecified (principal); D72.829 Elevated white blood cell count, unspecified; R06.00 Dyspnea, unspecified; R51.9 Headache, unspecified; E11.9 Type 2 diabetes mellitus without complications; E78.5 Hyperlipidemia, unspecified; I10 Essential (primary) hypertension
CPT/HCPCS: 36415; 71045; 80053; 82550; 83735; 83880; 84484; 85025; 93005; 96374; J1885

== ENCOUNTER 2022-09-11 11:05 | Outpatient (CLI) | payer OTHER | END 2022-09-11 11:06 | disposition home or self-care (01) | LOC: RAD 11:05 | PROVIDERS: ATTEND Otolaryngology | DX: R05.3 Chronic cough (principal) | CPT/HCPCS: 71046 ==

== ENCOUNTER 2022-10-05 15:51 | Emergency (ER) | payer OTHER ==
[2022-10-05] MEDS ORDERED: Ipratropium/Albuterol 3 ML NEB ONE (16:55)
== END 2022-10-05 19:06 | disposition home or self-care (01) ==
LOC: ERS 15:51
DX: J20.9 Acute bronchitis, unspecified (principal); E11.9 Type 2 diabetes mellitus without complications; E78.5 Hyperlipidemia, unspecified; I10 Essential (primary) hypertension; Z79.84 Long term (current) use of oral hypoglycemic drugs; Z79.899 Other long term (current) drug therapy
CPT/HCPCS: 71045; J7620

== ENCOUNTER 2023-05-22 08:58 | Outpatient (CLI) | payer OTHER | END 2023-05-22 08:59 | disposition home or self-care (01) | LOC: BICMAMMO 08:58 | PROVIDERS: ATTEND Nurse Practitioner Family | DX: Z12.31 Encounter for screening mammogram for malignant neoplasm of breast (principal) | CPT/HCPCS: 77067 ==

== ENCOUNTER 2023-07-01 09:25 | Emergency (ER) | payer OTHER ==
[2023-07-01] MEDS ORDERED: Ketorolac Tromethamine 30 MG (1 mL) VIAL ONE (10:00)
[2023-07-01 10:07] LABS: #Basophils 0.1 thou/uL (0.0-0.2); #Eosinphils 0.3 thou/uL (0.0-0.7); #Monocytes 0.6 thou/uL (0.11-0.59); #Neutrophils 4.4 thou/uL (1.40-6.50); %Basophils 1.1 % (0.0-1.0); %Eosinophils 3.2 % (0.0-10.0); %Lymphocytes 34.1 % (21.0-51.0); %Monocytes 7.7 % (0.0-10.0); %Neutrophils 53.8 % (42.0-75.0); Hematocrit 40.5 % (36.0-47.0); Hemoglobin 13.5 g/dL (12.0-16.0); Mean Corpuscular HGB CONC 33.3 g/dL (32.0-36.0); Mean Corpuscular Hemoglobin 29.1 pg (27.0-31.0); Mean Corpuscular Volume 87.3 fl (78.0-98.0); Mean Platelet Volume 9.6 fL (7.4-10.4); Platelet Count 303 10x3/uL (130-400); RBC Distribution Width 13.2 % (11.5-14.5); Red Blood Cell (RBC) Count 4.64 mill/uL (4.20-5.40); White Blood Cell (WBC) Count 8.2 10x3/uL (4.8-10.8)
[2023-07-01 10:17] LABS: Bilirubin Negative (Negative); Blood, Urine Trace (Negative); CAUTI Indications for Culture Dysuria,urgency,freq; Clarity Turbid (Clear); Glucose, Urine (Dipstick) Normal (Negative); Ketone, Urine Negative (Negative); Leukocyte 75 Leu/uL (Negative); Nitrite Negative (Negative); Protein, Urine (Dipstick) Negative (Neg-Trace); Specific Gravity, Urine 1.026 (1.002-1.036); Urobilinogen Normal mg/dL (Less than 2); pH, Urine 5.5 (5.0-9.0)
[2023-07-01 10:18] LABS: Bacteria/HPF 1+ HPF (None Seen); Urine Culture Reflex Yes Yes
[2023-07-01 10:34] LABS: ALT (SGPT) 13 U/L (8-55); AST (SGOT) 20 U/L (5-34); Albumin 3.9 g/dL (3.5-5.0); Alkaline Phosphatase 109 U/L (40-110); Anion Gap 11 mmol/L (10-20); BUN (Urea Nitrogen) 11 mg/dL (9.8-20.1); Bilirubin, Total 0.6 mg/dL (0.2-1.2); Calc. Creatinine Clearance 0 mL/min (70-130); Calcium 8.8 mg/dL (7.8-10.44); Carbon Dioxide 24 mmol/L (22-29); Chloride 109 mmol/L (98-107); Estimated GFR 86; Globulin 3.1 g/dL (2.4-3.5); Glucose 96 mg/dL (70-105); Lipase 8 U/L (8-78); Potassium 3.9 mmol/L (3.5-5.1); Sodium 140 mmol/L (136-145)
== END 2023-07-01 11:10 | disposition home or self-care (01) ==
LOC: ERS 09:25
DX: N39.0 Urinary tract infection, site not specified (principal); E11.9 Type 2 diabetes mellitus without complications; I10 Essential (primary) hypertension; Z79.899 Other long term (current) drug therapy; Z79.84 Long term (current) use of oral hypoglycemic drugs
CPT/HCPCS: 36415; 74176; 80053; 81001; 83690; 85025; 87077; 87086; 96374; J1885

== ENCOUNTER 2023-07-25 18:31 | Emergency (ER) | payer OTHER ==
[2023-07-25] MEDS ORDERED: Ondansetron ODT 4 MG TAB ONE (18:42)
[2023-07-25] MEDS ORDERED: Ketorolac Tromethamine 30 MG (1 mL) VIAL ONE (19:29)
[2023-07-25 19:35] LABS: SARS-CoV-2 NAA Rapid Test DETECTED (NotDetected)
[2023-07-25 19:36] LABS: Hematocrit 39.9 % (36.0-47.0); Hemoglobin 13.6 g/dL (12.0-16.0); Manual Diff?? YES; Mean Corpuscular HGB CONC 34.1 g/dL (32.0-36.0); Mean Corpuscular Hemoglobin 28.9 pg (27.0-31.0); Mean Corpuscular Volume 84.9 fl (78.0-98.0); Mean Platelet Volume 9.7 fL (7.4-10.4); Platelet Count 273 10x3/uL (130-400); RBC Distribution Width 12.6 % (11.5-14.5); White Blood Cell (WBC) Count 7.6 10x3/uL (4.8-10.8)
[2023-07-25 19:49] LABS: Delete Auto Diff?? YES
[2023-07-25 20:02] LABS: ALT (SGPT) 9 U/L (8-55); AST (SGOT) 18 U/L (5-34); Albumin 4.1 g/dL (3.5-5.0); Alkaline Phosphatase 113 U/L (40-110); Anion Gap 11 mmol/L (10-20); BUN (Urea Nitrogen) 14 mg/dL (9.8-20.1); Bilirubin, Total 0.6 mg/dL (0.2-1.2); Calc. Creatinine Clearance 0 mL/min (70-130); Calcium 8.7 mg/dL (7.8-10.44); Carbon Dioxide 23 mmol/L (22-29); Chloride 106 mmol/L (98-107); Estimated GFR 68; Glucose 125 mg/dL (70-105); Lipase 19 U/L (8-78); Potassium 3.7 mmol/L (3.5-5.1); Protein, Total 7.1 g/dL (6.0-8.3); Sodium 136 mmol/L (136-145)
[2023-07-25 20:06] LABS: Troponin I Less than 0.010 ng/mL (< 0.028)
[2023-07-25 20:11] LABS: Band 2 % (5-11); CellaVision Operator ID LAB.CLH1; Eosinophils 2 % (0-10); Lymphocytes 24 % (21-51); Monocytes 16 % (0-10); Neutrophil 53 % (42-75); Platelet Adequacy Comment Platelets Normal; Reactive Lymphocytes 3 % (0-10); Total Cell Count 100
[2023-07-25 20:34] LABS: Bacteria/HPF 1+ HPF (None Seen); Bilirubin Negative (Negative); Blood, Urine 1+ (Negative); CAUTI Indications for Culture < 2yrs of age; Clarity Clear (Clear); Glucose, Urine (Dipstick) Normal (Negative); Ketone, Urine Negative (Negative); Leukocyte 250 Leu/uL (Negative); Nitrite Negative (Negative); Protein, Urine (Dipstick) Negative (Neg-Trace); RBC/HPF 0-3 HPF (0-3); Specific Gravity, Urine 1.025 (1.002-1.036); pH, Urine 5.5 (5.0-9.0)
[2023-07-25 20:35] LABS: Urine Culture Reflex Yes Yes
== END 2023-07-25 20:55 | disposition home or self-care (01) ==
LOC: ERS 18:31
DX: U07.1 COVID-19 (principal); E11.9 Type 2 diabetes mellitus without complications; I10 Essential (primary) hypertension
CPT/HCPCS: 71045; 80053; 81001; 83605; 83690; 83880; 84484; 85025; 87086; 93005; 96374; J1885; Q0162

== ENCOUNTER 2024-03-25 11:46 | Emergency (ER) | payer OTHER ==
[2024-03-25] MEDS ORDERED: Ketorolac Tromethamine 30 MG (1 mL) VIAL ONE (12:33)
== END 2024-03-25 13:39 | disposition home or self-care (01) ==
LOC: ERS 11:46
DX: S80.01XA Contusion of right knee, initial encounter (principal); T14.8XXA Other injury of unspecified body region, initial encounter; W01.10XA Fall on same level from slipping, tripping and stumbling with subsequent striking against unspecified object, initial encounter; E11.9 Type 2 diabetes mellitus without complications; E78.5 Hyperlipidemia, unspecified; I10 Essential (primary) hypertension; E78.00 Pure hypercholesterolemia, unspecified; M79.601 Pain in right arm
CPT/HCPCS: 96372; 99283; J1885

== ENCOUNTER 2024-06-20 18:41 | Emergency (ER) | payer OTHER | END 2024-06-20 20:12 | disposition home or self-care (01) | LOC: ERS 18:41 | DX: J06.9 Acute upper respiratory infection, unspecified (principal); J01.00 Acute maxillary sinusitis, unspecified; I10 Essential (primary) hypertension; E11.9 Type 2 diabetes mellitus without complications; E78.5 Hyperlipidemia, unspecified | CPT/HCPCS: 71045; 87428 ==

== ENCOUNTER 2024-07-09 12:45 | Outpatient (CLI) | payer OTHER | END 2024-07-09 12:46 | disposition home or self-care (01) | LOC: BICMAMMO 12:45 | PROVIDERS: ATTEND Nurse Practitioner Family | DX: Z12.31 Encounter for screening mammogram for malignant neoplasm of breast (principal) | CPT/HCPCS: 77067 ==

== ENCOUNTER 2025-04-05 06:10 | Day surgery (SDC) | payer OTHER ==
[2025-04-02 13:03] VITALS: BMI 45.3
[2025-04-05] MEDS ORDERED: PROPOFOL 20 ML ONE ×2 (07:48→08:05)
[2025-04-05] MEDS ORDERED: GLYCOPYRROLATE/PF 0.2 MG/ML VIAL ONE (07:49)
== END 2025-04-05 09:10 | disposition home or self-care (01) ==
LOC: SDC 06:10
PROVIDERS: ATTEND Internal Medicine
DX: D13.0 Benign neoplasm of esophagus (principal); R13.10 Dysphagia, unspecified; K21.9 Gastro-esophageal reflux disease without esophagitis; K44.9 Diaphragmatic hernia without obstruction or gangrene; K22.2 Esophageal obstruction; E11.9 Type 2 diabetes mellitus without complications; I10 Essential (primary) hypertension; E78.5 Hyperlipidemia, unspecified
CPT/HCPCS: 88305; J2704; J3490